=== PATIENT | male | born 1985 | race American Indian/Alaskan Native ===

== ENCOUNTER 2016-10-31 09:13 | Emergency (ER) | payer MEDICARE ==
[2016-10-31 10:09] VITALS: BP 150/87
[2016-10-31] MEDS ORDERED: D5NS 0.2% 1,000 ML IV ONE (10:11)
--- NOTE | 2016-10-31 10:11 | Emergency Department Report ---
Chief Complaint: Sickle Cell Crisis Stated Complaint: SICKLE CELL PAIN Time Seen by Provider: 10/31/16 10:10 - HPI History of Present Illness: This is a 31-year-old male complaining of sickle cell crisis. He said this pain going on for 3 days and complaining the lower back pain, bilateral leg pain and left arm pain. Pain is 8 out of 10. said he takes Dilaudid 4 mg twice daily and he is on folic acid. - ROS Review of Systems: all Systems are negative unless stated in HPI above. - Exam Vital Signs: Vital Signs 10/31/16 10:04 Temperature 98.7 F Pulse Rate 81 Respiratory 16 Rate Blood Pressure 150/87 O2 Sat by Pulse 100 Oximetry Physical Exam: General: Said a 31-year-old male appears to be in distress from pain. CV:S1, S2. Regular rate and rhythm. MSE screening note: Focused history and physical exam performed. Due to findings the following was ordered:see mdm ED Medical Decision Making - Medical Decision Making Medical decision making: Patient seen by provider in triage area. Appropriate protocol activated and patient to main ED to be seen by physician. ED Disposition for MSE Condition: Stable
[2016-10-31 10:39] LABS: Hematocrit 34.6 % (35.5-45.6); Mean Corpuscular HGB Conc 35 % (32-34); Mean Corpuscular Hemoglobin 31 pg (28-32); Mean Corpuscular Volume 89 fl (84-94); Platelet Count 286 K/mm3 (140-440); Red Blood Count 3.89 M/mm3 (3.65-5.03); Red Cell Distribution Width 14.8 % (13.2-15.2); Reticulocyte % 2.75 % (0.78-2.58); White Blood Count 6.7 K/mm3 (4.5-11.0)
[2016-10-31 11:15] LABS: Anisocytosis 1+; Basophils % (Manual) 0 % (0.0-1.8); Blastocytes % (Manual) 0 %
[2016-10-31 11:16] LABS: Diff Status Complete; Sickle Cells Few; Spherocytes Few; Target Cells 2+
--- NOTE | 2016-11-02 19:07 | ED Elopement Review ---
ED Pt Elopement review - Results review Lab results: Laboratory Tests 10/31/16 10:18 WBC 6.7 RBC 3.89 Hgb 12.0 Hct 34.6 L MCV 89 MCH 31 MCHC 35 H RDW 14.8 Plt Count 286 [place] % (Auto) Nursing Home Director Add Manual Diff Complete Total Counted 100 Seg Neutrophils % Nursing Home Director Seg Neuts % (Manual) 38.0 L Band Neutrophils % 0 Lymphocytes % (Manual) 45.0 H Reactive Lymphs % (Man) 0 Monocytes % (Manual) 14.0 H Eosinophils % (Manual) 3.0 Basophils % (Manual) 0 Metamyelocytes % 0 Myelocytes % 0 Promyelocytes % 0 Blast Cells % 0 Nucleated RBC % 3.0 H Seg Neutrophils # Man 2.5 Band Neutrophils # 0.0 Lymphocytes # (Manual) 3.0 Abs React Lymphs (Man) 0.0 Monocytes # (Manual) 0.9 H Eosinophils # (Manual) 0.2 Basophils # (Manual) 0.0 Metamyelocytes # 0.0 Myelocytes # 0.0 Promyelocytes # 0.0 Blast Cells # 0.0 WBC Morphology Not Reportable Hypersegmented Neuts Not Reportable Hyposegmented Neuts Not Reportable Hypogranular Neuts Not Reportable Smudge Cells Not Reportable Toxic Granulation Not Reportable Toxic Vacuolation Not Reportable Dohle Bodies Not Reportable Pelger-Huet Anomaly Not Reportable Jamel Rods Not Reportable Platelet Estimate Appears normal Clumped Platelets Not Reportable Plt Clumps, EDTA Not Reportable Large Platelets Not Reportable Giant Platelets Not Reportable Platelet Satelliting Not Reportable Plt Morphology Comment Not Reportable RBC Morphology Not Reportable Dimorphic RBCs Not Reportable Polychromasia Not Reportable Hypochromasia Not Reportable Poikilocytosis Not Reportable Anisocytosis 1+ Microcytosis Not Reportable Macrocytosis Not Reportable Spherocytes Few Pappenheimer Bodies Not Reportable Sickle Cells Few Target Cells 2+ Tear Drop Cells Not Reportable Ovalocytes Not Reportable Helmet Cells Not Reportable Reyes-Nuremberg Bodies Not Reportable Callahan Rings Not Reportable [place] Cells Not Reportable Bite Cells Not Reportable Crenated Cell Not Reportable Elliptocytes Not Reportable Acanthocytes (Spur) Not Reportable Rouleaux Not Reportable Hemoglobin C Crystals Not Reportable Schistocytes Not Reportable Malaria parasites Not Reportable Percent Retic 2.75 H Darryn Bodies Not Reportable Hem Pathologist Commnt No - Call Back decision Pt Call Back Decision: No action required
== END 2016-10-31 12:00 | disposition left against medical advice (07) ==
LOC: ED 09:13
DX: D57.00 Hb-SS disease with crisis, unspecified (principal); M54.5 Low back pain; M79.604 Pain in right leg; M79.605 Pain in left leg; Z53.21 Procedure and treatment not carried out due to patient leaving prior to being seen by health care provider
CPT/HCPCS: 36415; 85007; 85025; 85045

== ENCOUNTER 2018-11-17 19:47 | Inpatient (IN) | payer MEDICARE ==
[2018-11-17] MEDS ORDERED: PERCOCET 5/325 PO ONE (20:40)
--- NOTE | 2018-11-17 20:40 | Emergency Department Report ---
Blank Doc - Documentation Documentation: 33 y.o. male presents with chest pain that started today. History of sickle c ell. Reports pain is related to sickle cell crisis. Labs, IV, and fluids ordered Given percocet 5/325 mg po once. MSE complete
[2018-11-17] MEDS ORDERED: PERCOCET 5/325 ONE (20:43)
[2018-11-17] MEDS ORDERED: D5NS 0.2% 1,000 ML IV SCH (21:00)
[2018-11-17] MEDS ORDERED: D5/0.45NS 1,000 ML IV SCH (23:45)
--- NOTE | 2018-11-17 23:55 | Emergency Department Report ---
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 Patient presents to the emergency room with diffuse body pain, feeling like he is having a sickle cell crisis, also back pain, a sensation of blacking out, or almost "blacking out" (the patient's history is variable on this point, at one point he indicated that he lost con sciousness, and then subsequently indicated that he did not lose consciousness. He is not able to definitively clarify this point for me). He also complains of central chest pain, and back pain. He denies vomiting, diaphoresis. He denies hematemesis, bright red blood per rectum. History is for sickle cell crisis including cold weather, change of seasons and stress. He denies testicular pain, and dysuria, but does endorse bloody urine. His pain is typically improved with hydromorphone, and occasionally diphenhydramine. -: Gradual, hour(s) Location: chest, back, left, right, upper extremity, lower extremity Radiation: non-radiation Severity scale (0 -10): 3 Quality: burning, stabbing, aching Consistency: constant Improves with: medication, rest Worsens with: movement Associated Symptoms: chest pain, loss of appetite, malaise, syncope, weakness. denies: confusion, cough, diaphoresis, fever/chills, headaches, nausea/vomiting, rash, seizure, shortness of breath - Related Data Home Medications Medication Instructions Recorded Confirmed Last Taken Folic Acid 0.4 mg PO QDAY 07/03/15 07/03/15 Unknown Hydromorphone HCl [Dilaudid] 4 mg PO PRN 07/03/15 07/03/15 Unknown levETIRAcetam [Keppra TAB] 500 mg PO BID 07/03/15 07/03/15 Unknown Previous Rx's Medication Instructions Recorded Last Taken Type oxyCODONE /ACETAMINOPHEN [Percocet 1 tab PO Q6HR PRN #6 tablet 07/09/15 Unknown Rx 5/325 mg] Allergies Allergy/AdvReac Type Severity Reaction Status Date / Time steriod Allergy Unknown Uncoded 10/31/16 10:04 ED Review of Systems ROS: Stated complaint: CHEST/SICKLE CELL PAIN Other details as noted in HPI Constitutional: malaise Eyes: denies: vision change ENT: denies: epistaxis Respiratory: denies: cough Cardiovascular: chest pain Gastrointestinal: denies: hematemesis, melena, hematochezia Genitourinary: hematuria Musculoskeletal: back pain, arthralgia, myalgia Skin: denies: lesions Neurological: weakness Psychiatric: anxiety ED Past Medical Hx - Past Medical History Hx Sickle Cell Disease: Yes Hx Seizures: Yes Additional medical history: HX TRANSFUSIONS - Surgical History Hx Cholecystectomy: Yes Additional Surgical History: spleen removed 2009 - Social History Smoking Status: Never Smoker Substance Use Type: Marijuana - Medications Home Medications: Home Medications Medication Instructions Recorded Confirmed Last Taken Type Folic Acid 0.4 mg PO QDAY 07/03/15 07/03/15 Unknown History Hydromorphone HCl [Dilaudid] 4 mg PO PRN 07/03/15 07/03/15 Unknown History levETIRAcetam [Keppra TAB] 500 mg PO BID 07/03/15 07/03/15 Unknown History oxyCODONE /ACETAMINOPHEN [Percocet 1 tab PO Q6HR PRN #6 tablet 07/09/15 Unknown Rx 5/325 mg] ED Physical Exam - General Limitations: No Limitations General appearance: alert, in distress - Head Head exam: Present: atraumatic, normocephalic - Eye Eye exam: Present: normal appearance, EOMI. Absent: scleral icterus, nystagmus - ENT ENT exam: Present: normal exam, normal orophraynx, mucous membranes moist - Neck Neck exam: Present: normal inspection, full ROM. Absent: tenderness, meningismus - Respiratory Respiratory exam: Present: normal lung sounds bilaterally. Absent: respiratory distress - Cardiovascular Cardiovascular Exam: Present: regular rate, normal rhythm, normal heart sounds. Absent: bradycardia, tachycardia, irregular rhythm, systolic murmur, diastolic murmur, rubs, gallop - GI/Abdominal GI/Abdominal exam: Present: soft. Absent: distended, tenderness, guarding, rebound, rigid, pulsatile mass - Rectal Rectal exam: Present: deferred - Extremities Exam Extremities exam: Present: normal inspection, full ROM, other (2+ pulses noted in the bilateral upper, lower extremities. Compartments soft. No long bony tenderness. The pelvis is stable.). Absent: pedal edema, joint swelling, calf tenderness - Back Exam Back exam: Present: normal inspection, full ROM. Absent: tenderness, CVA tenderness (R), paraspinal tenderness, vertebral tenderness - Neurological Exam Neurological exam: Present: alert, oriented X3, CN II-XII intact, other (Extraocular movements intact. Tongue midline. No facial droop. Facial sensat ion intact to light touch in the V1, V2, V3 distribution bilaterally. 5 and 5 strength in 4 extremities.. Sensation is intact to light touch in 4 extremities.). Absent: motor sensory deficit - Psychiatric Psychiatric exam: Present: anxious - Skin Skin exam: Present: warm, dry, intact, normal color. Absent: rash ED Course Vital Signs 11/17/18 11/17/18 11/17/18 20:06 20:36 20:43 Temperature 98.2 F 98.2 F Pulse Rate 84 84 Respiratory 16 16 18 Rate Blood Pressure 130/79 130/79 O2 Sat by Pulse 98 98 Oximetry 11/17/18 11/18/18 11/18/18 23:48 00:32 00:45 Temperature Pulse Rate Respiratory 18 Rate Blood Pressure 119/59 O2 Sat by Pulse 100 95 Oximetry 11/18/18 11/18/18 11/18/18 01:00 01:15 01:31 Temperature Pulse Rate Respiratory Rate Blood Pressure 131/81 118/74 114/70 O2 Sat by Pulse 96 95 93 Oximetry 11/18/18 11/18/18 11/18/18 01:40 01:45 02:00 Temperature Pulse Rate 80 Respiratory Rate Blood Pressure 110/67 102/59 112/62 O2 Sat by Pulse 96 95 Oximetry 11/18/18 03:15 Temperature Pulse Rate Respiratory Rate Blood Pressure O2 Sat by Pulse 95 Oximetry - Reevaluation(s) Reevaluation #1: 11/18/18 01:20 Rhonda some diagnosis, including not limited to: Sickle cell crisis, pneumonia, pulmonary embolus, pericarditis, myocarditis, acute coronary syndrome, orthost asis, vagal event, structural cardiac disease, rhabdomyolysis, hepatitis, genitourinary infection, kidney stone Assessment and plan: 33-year-old gentleman with a history of sickle cell disease, with a reported history of sickle cell crisis, and multiple complaints on review of systems, including 1: Chest pain/questionable syncope EKG morphologically abnormal, without prior for comparison. The EKG is transmitted to the mixer operator helper hot metal power generation equipment repairer, Dr Mckenzie Hsu, who indicated that the EKG did not meet ST elevation myocardial infarction criteria, that the patient had normal sinus, early repolarization, and did not recommend activation of the Destination Specialist. His elevated troponin with normal renal function is of uncertain significance. Given the patient's young age, numerous complaints, EKG morphology, I agree, and we will monitor the patient, and we will treat supportively, symptomatically. His pain will be treated with hydromorphone, repeat EKG, repeat troponin ordered, CT scan of the chest will be ordered given history of DVT, and history of syncope. The patient will be placed on a cardiac cath lab manager. 2: Back pain pain medication will be given, CT scan will be obtained. 3: "Hematuria" Urinalysis, CT scan of the abdomen and pelvis will be obtained, pain medication will be given. Plan to admit the patient to the medical service once initial diagnostics have resulted. 11/18/18 01:23 Reevaluation #2: 11/18/18 03:21 CT scan of the brain is negative for acute disease. CT scan of the chest is negative for acute disease. CT scan of the abdomen and pelvis is negative for repeat EKG shows improvement in ST abnormalities. Repeat troponin is pending. Hospital physician, Dr. Harman has accepted the patient to the medical service. Given that I'm concerned about julio pericarditis, we will withhold systemic anticoagulation, as we do not want to risk hemorrhagic transformation. Additional pain medication ordered. ED Medical Decision Making - Lab Data Result diagrams: 11/18/18 00:32 11/18/18 00:32 Vital Signs 11/17/18 11/17/18 11/17/18 20:06 20:36 20:43 Temperature 98.2 F 98.2 F Pulse Rate 84 84 Respiratory 16 16 18 Rate Blood Pressure 130/79 130/79 O2 Sat by Pulse 98 98 Oximetry 11/17/18 11/18/18 23:48 00:32 Temperature Pulse Rate Respiratory 18 Rate Blood Pressure O2 Sat by Pulse 100 Oximetry Lab Results 11/18/18 11/18/18 11/18/18 Range/Units 00:32 00:32 00:32 WBC 6.4 (4.5-11.0) K/mm3 RBC 3.55 L (3.65-5.03) M/mm3 Hgb 10.5 L (11.8-15.2) gm/dl Hct 30.5 L (35.5-45.6) % MCV 86 (84-94) fl MCH 30 (28-32) pg MCHC 34 (32-34) % RDW 17.9 H (13.2-15.2) % Plt Count 305 (140-440) K/mm3 [place] % (Auto) Entry Manager Seg Neutrophils % Entry Manager Percent Retic 2.89 H (0.78-2.58) % PT 13.3 (12.2-14.9) Sec. INR 0.97 (0.87-1.13) Sodium 138 (137-145) mmol/L Potassium 3.9 (3.6-5.0) mmol/L Chloride 101.5 (98-107) mmol/L Carbon Dioxide 26 (22-30) mmol/L Anion Gap 14 mmol/L BUN 8 L (9-20) mg/dL Creatinine 0.5 L (0.8-1.5) mg/dL Estimated GFR > 60 ml/min BUN/Creatinine Ratio 16 % Glucose 110 H (75-100) mg/dL Calcium 8.9 (8.4-10.2) mg/dL Total Creatine Kinase (55-170) units/L Troponin T (0.00-0.029) ng/mL 11/18/18 Range/Units 00:32 WBC (4.5-11.0) K/mm3 RBC (3.65-5.03) M/mm3 Hgb (11.8-15.2) gm/dl Hct (35.5-45.6) % MCV (84-94) fl MCH (28-32) pg MCHC (32-34) % RDW (13.2-15.2) % Plt Count (140-440) K/mm3 [place] % (Auto) Seg Neutrophils % Percent Retic (0.78-2.58) % PT (12.2-14.9) Sec. INR (0.87-1.13) Sodium (137-145) mmol/L Potassium (3.6-5.0) mmol/L Chloride (98-107) mmol/L Carbon Dioxide (22-30) mmol/L Anion Gap mmol/L BUN (9-20) mg/dL Creatinine (0.8-1.5) mg/dL Estimated GFR ml/min BUN/Creatinine Ratio % Glucose (75-100) mg/dL Calcium (8.4-10.2) mg/dL Total Creatine Kinase 159 (55-170) units/L Troponin T 0.327 H* (0.00-0.029) ng/mL - EKG Data -: EKG Interpreted by Me EKG shows normal: sinus rhythm Rate: normal - EKG Data When compared to previous EKG there are: previous EKG unavailable - Radiology Data Radiology results: report reviewed, image reviewed Noncontrast CT scan of the brain is negative for acute disease. X-ray the chest is negative for acute disease. Chronic findings noted. Critical care attestation.: If time is entered above; I have spent that time in minutes in the direct care of this critically ill patient, excluding procedure time. ED Disposition Clinical Impression: Sickle cell anemia with pain, Elevated troponin I level, Abnormal EKG, Near syncope Disposition: OP ADMIT IP TO THIS HOSP Is pt being admited?: Yes Does the pt Need Aspirin: Yes Condition: Stable Referrals: FLAQUITO RUIZ MD [Primary Care Provider] - 3-5 Days
--- NOTE | 2018-11-18 00:22 | XRay Report ---
FINAL REPORT EXAM: XR CHEST ROUTINE 2V HISTORY: hb ss chest pain. TECHNIQUE: PA and lateral views of the chest were obtained. PRIORS: None. FINDINGS: No focal consolidation, cardiomegaly or pulmonary venous hypertension. No pleural effusion. There is mixed sclerosis and lucencies within the humeral heads bilaterally consistent with avascular necrosis . IMPRESSION: No acute cardiopulmonary disease. Bilateral humeral head avascular necrosis.
--- NOTE | 2018-11-18 00:38 | Cat Scan Report ---
FINAL REPORT EXAM: CT HEAD/BRAIN WO CON HISTORY: Syncope. TECHNIQUE: CT evaluation was performed of the head without the use of intravenous contrast administr ation. PRIORS: CT head dated 07/03/2015. FINDINGS: Normal density, size and configuration of the brain parenchyma and CSF containing spaces. No evidence of acute hemorrhage. no mass effect, edema or shift of midline structures. Visualized paranasal sinu ses are clear. No pathologic fluid collection. Calvarium is normal. IMPRESSION: No CT evidence of acute intracranial process.
[2018-11-18 00:53] LABS: Hematocrit 30.5 % (35.5-45.6); Hemoglobin 10.5 gm/dl (11.8-15.2); Mean Corpuscular HGB Conc 34 % (32-34); Mean Corpuscular Volume 86 fl (84-94); Platelet Count 305 K/mm3 (140-440); Red Blood Count 3.55 M/mm3 (3.65-5.03); Red Cell Distribution Width 17.9 % (13.2-15.2)
[2018-11-18] MEDS ORDERED: DILAUDID IV ONE ×3 (00:54→03:20)
[2018-11-18] MEDS ORDERED: DILAUDID ONE ×2 (00:57→02:00)
[2018-11-18 01:08] LABS: BUN/Creatinine Ratio 16; Blood Urea Nitrogen 8 mg/dL (9-20); Calcium 8.9 mg/dL (8.4-10.2); Hemolysis Index 17
[2018-11-18] MEDS ORDERED: BENADRYL PO ONE ×2 (01:10)
[2018-11-18 01:17] LABS: INR 0.97 (0.87-1.13)
[2018-11-18] MEDS ORDERED: NITROSTAT SL ONE (01:24)
[2018-11-18 01:56] LABS: Bilirubin,Urine NEG (Negative); Blood,Urine NEG (Negative); Color,Urine Yellow (Yellow); Protein,Urine <15 mg/dL mg/dL (Negative); Urobilinogen,Urine < 2.0 mg/dL (<2.0)
[2018-11-18 02:06] LABS: Anisocytosis 1+; Band Neutrophils # (Manual) 0.3 K/mm3; Basophils % (Manual) 0 % (0.0-1.8); Hypochromasia 2+; Myelocytes # (Manual) 0.1 K/mm3; Ovalocytes 1+; Stomatocytes Few; Target Cells 2+; Total Cells Counted 100
[2018-11-18 02:07] LABS: Tear Drop Cells Rare
--- NOTE | 2018-11-18 03:14 | Cat Scan Report ---
FINAL REPORT PROCEDURE: CT ANGIO CHEST TECHNIQUE: Computerized axial tomographic angiography of the chest and pulmonary arteries was perfor med after the IV injection of iodinated nonionic contrast. The image data was postprocessed using max imum intensity projection (MIP) and 2-dimensional multiplanar reformatted (MPR) techniques. The exami nation is specifically tailored to the evaluation of the pulmonary arteries per clinical request. HISTORY: Short of breath 786.09, chest pain 786.50, cp near syncope hx dvt COMPARISON: No prior studies are available for comparison. FINDINGS: Heart and pericardium: Normal. Thoracic aorta: Normal. Pulmonary vasculature: Normal. No pulmonary emboli. Lymph nodes: No enlarged thoracic lymph nodes. Lungs: Normal. Pleural space: No effusion, thickening, or pneumothorax. Musculoskeletal structures: No significant abnormality. Upper abdominal structures: No significant abnormality. IMPRESSION: There is no pulmonary embolism..
[2018-11-18 03:15] LABS: Chol/HDL Ratio 2.83 %
--- NOTE | 2018-11-18 03:19 | Cat Scan Report ---
FINAL REPORT PROCEDURE: CT ABDOMEN PELVIS W CON TECHNIQUE: Computerized axial tomography of the abdomen and pelvis was performed after the IV inject ion of iodinated nonionic contrast. HISTORY: back pain hematuria syncope COMPARISON: No prior studies are available for comparison. FINDINGS: Visualized lower thorax: No significant abnormality. Liver: Normal size and attenuation. Spleen: Normal size and attenuation. Gallbladder and biliary system: There has been a cholecystectomy. The bile ducts are normal in calibe r.. Pancreas: Normal. Adrenals: Normal. Kidneys: There is a cyst in the upper pole of the right kidney measuring 2.4 centimeters. There are n o kidney stones. There is no hydronephrosis.. GI tract: There is no bowel obstruction, colitis or enteritis.. Lymph nodes and mesentery: Normal. Vasculature: Normal. Bladder: Normal. Reproductive organs: Normal. Peritoneum: There is no ascites, free air, abscess or adenopathy.. Musculoskeletal structures: No significant abnormality. Other: None. IMPRESSION: There has been a cholecystectomy. The bile ducts are normal in caliber.. There is a cyst in the upper pole of the right kidney measuring 2.4 centimeters. There are no kidney stones. There is no hydronephrosis.. There is no bowel obstruction, colitis or enteritis.. There is no ascites, free air, abscess or adenopathy..
[2018-11-18] MEDS ORDERED: TORADOL IV ONE (03:22)
[2018-11-18] MEDS ORDERED: BABY ASPIRIN PO ONE (03:23)
[2018-11-18] MEDS ORDERED: ZOFRAN IV PRN (03:57)
[2018-11-18] MEDS ORDERED: TYLENOL PO PRN (03:58)
[2018-11-18 04:35] LABS: Creatine Kinase MB 17.9 ng/mL (0.0-4.0)
[2018-11-18 04:36] LABS: Alanine Aminotransferase 35 units/L (7-56)
[2018-11-18 05:30] LABS: Bilirubin,Direct < 0.2 mg/dL (0-0.2)
[2018-11-18 06:34] LABS: Creatine Kinase MB 17.2 ng/mL (0.0-4.0)
[2018-11-18] MEDS: DILAUDID IV PRN ×5 (06:38→21:13)
[2018-11-18] MEDS: NACL 0.9% 1000 ML 1,000 ML IV SCH (06:44)
--- NOTE | 2018-11-18 07:01 | History and Physical Report ---
CHIEF COMPLAINT: Generalized body pain. Other complaint includes chest pain. HISTORY OF PRESENTING ILLNESS: The patient is a 33-year-old male with history of sickle cell anemia, presenting with pain all over and also chest pain. The patient said that the chest pain became severe and he passed out twice. Denied history of fever. Denied history of chills. Also, denied history of nausea or vomiting and presented for evaluation to the Emergency Room. PAST MEDICAL HISTORY: Pertinent for seizure disorder, sickle cell anemia, which has been treated with multiple transfusions. PAST SURGICAL HISTORY: Pertinent for cholecystectomy and splenectomy. FAMILY HISTORY: Noncontributory.. SOCIAL HISTORY: The patient uses marijuana. He does not smoke cigarettes and does not drink alcohol. MEDICATIONS: The patient is on folic acid 0.4 mg by mouth daily, Dilaudid 4 mg by mouth as needed, frequency unknown; Keppra 500 mg by mouth twice daily, and Percocet 5/325 one by mouth every 6 hours as needed for pain. ALLERGIES: THE PATIENT IS ALLERGIC TO STEROIDS. REVIEW OF SYSTEMS: CONSTITUTIONAL: There is no fever, no chills, no diaphoresis. HEENT: There is no headache or sore throat. CARDIOVASCULAR SYSTEM: Chest pain is present. No orthopnea. RESPIRATORY SYSTEM: There is no shortness of breath and no cough. GASTROINTESTINAL SYSTEM: There is no nausea, no vomiting, no abdominal pain, diarrhea or constipation. NEUROLOGICAL SYSTEM: Syncopal episode attack noted. MUSCULOSKELETAL SYSTEM: Generalized body pain involving the limbs noted. There is no joint swelling. DERMATOLOGICAL SYSTEM: There is no skin rash or itching. GENITOURINARY SYSTEM: There is no dysuria, hematuria or flank pain. Rest of system review is normal. PHYSICAL EXAMINATION: GENERAL: At the time of exam, the patient was found to be alert and oriented x3 and in moderate distress due to body pain. VITAL SIGNS: At the initial time of presentation show temperature of 98.2 degrees Fahrenheit, pulse of 84, respiration 16, blood pressure 130/79, and O2 sat of 98% on room air. HEENT: Showed pupils to be equal, round, and reactive to light and accommodating. Extraocular movements are intact. NECK: Supple with no JVD or carotid bruit. CARDIOVASCULAR: Showed normal first and second heart sounds with no gallop or murmur. RESPIRATORY SYSTEM: Showed good air entry on both sides of the lungs with no abnormal breath sounds. GASTROINTESTINAL SYSTEM: Showed abdomen to be full, soft, nontender with no organomegaly or rigidity. NEUROLOGICAL: Showed no focal deficit. MUSCULOSKELETAL SYSTEM: Showed no joint swelling or tenderness. DERMATOLOGICAL SYSTEM: Showing no skin rash. GENITOURINARY SYSTEM: Showing no costovertebral angle tenderness. PERTINENT LABORATORY DATA AND IMAGING STUDIES: The patient has chest x-ray done and chest x-ray showed no acute cardiopulmonary disease. There is bilateral humeral head avascular necrosis noted. The patient also has a CT of the head done and CT of the head showed no acute intracranial process. The patient had a CT of the abdomen and pelvis done and CT of the abdomen and pelvis showed that there has been cholecystectomy done in the past ____ found to be normal but there is a cyst in the upper pole of the right kidney measuring 2.4 cm. There are no kidney stones. There is no hydronephrosis. Also there was no bowel obstruction, colitis or enteritis found. There was no ascites, free air, abscess or adenopathy found. The patient also had a CT angiogram of the chest and angiogram of the chest showed no pulmonary embolism. LABORATORY DATA: The patient's lab results: CBC showed normal white count with slightly low hemoglobin of 10.5 and slightly low hematocrit of 30.5. The patient's CBC differential showed elevated monocyte count of 11 and elevated eosinophilic count of 12. The patient's percent retic count is high with a value of 2.89, and the patient's coagulation studies showed a high D-dimer of 776 that led to ordering of CT angiogram. The patient's chemistry was unremarkable except for elevated AST level of 43 with normal ALT and the patient's cardiac enzymes showed elevated total CPK of 216 with high CK-MB of 17.9 and high CK-MB percentage index of 8.2 with elevated troponin level of 0.327. The patient's urinalysis was unremarkable. DIAGNOSES: 1. Sickle cell pain crisis. 2. Syncope. 3. Elevated troponin level. PLAN: 1. The patient will be admitted to telemetry. 2. The patient will continue Cardiology consult with Dr. Hsu, already requested by the Emergency Room physician. 3. The patient will have cardiac enzymes involving troponin, total CK, and CK-MB checked every 6 hours x 2 more levels. 4. The patient will be on IV Dilaudid 1 mg every 3 hours as needed for pain and IV Zofran 4 mg every 8 hours for nausea and vomiting. 5. The patient will be on IV normal saline running at 125 mL an hour. 6. The patient will have 2D echo done because of syncopal attack and also have bilateral carotid Doppler done because of the syncopal attack. 7. The patient will be on Tylenol 650 mg by mouth every 4 hours as needed for fever and headache. JOB# [id number] OCN/NTS MTDD
[2018-11-18] MEDS: KEPPRA PO SCH ×2 (09:42→21:14)
[2018-11-18] MEDS: BENADRYL PO PRN (10:00)
--- NOTE | 2018-11-18 11:27 | Vascular Lab Report ---
FINAL REPORT EXAM: VL CAROTID DUPLEX BILAT HISTORY: SYNCOPE TECHNIQUE: Grayscale and color and spectral Doppler ultrasound imaging of the carotid arteries was p erformed. PRIORS: None. FINDINGS: No areas of complete occlusion. Normal waveforms are seen throughout. No aneurysm. No calcified ather osclerotic plaque was seen. Normal flow is seen in the external carotid arteries. Antegrade flow is s een in the vertebral arteries. Note is made of a nonocclusive thrombus within the central portion of the right internal jugular vein. Peak systolic velocities in cm/s below: Right: CCA: 104 proximally, 93 distally ICA: 105 proximally, 85 mid, 84 distally ECA: 92 Left: CCA: 141 proximally, 125 distally ICA: 90 proximally, 91 mid, 76 distally ECA: 62 The right ICA:CCA ratio is 0.82. The left ICA:CCA ratio is 0.64. IMPRESSION: 1. No evidence of internal carotid artery stenosis. 2. Positive for acute DVT within the right internal jugular vein. Findings were discussed with Dr. Burnett at 8:23 a.m. [facility] on 11/18/2018.
--- NOTE | 2018-11-18 11:28 | Progress Note ---
Assessment and Plan Assessment and plan: --Right IJ acute DVT; Anticoagulation with Lovenox, supportive care. Vascular consult --Sickle cell disease with painful crisis; Continue pain management, IV hydration, consider hematology consult if no i mprovement --Elevated cardiac enzymes; possible non-ST elevation MO Continue current management, cardiology consultation Echo for left ventricular function ejection fraction --History of syncope; fall precautions Syncope workup in progress, supportive care --Elevated D dimers; negative PE on CTA chest Right IJ acute DVT, check lower extremity venous Doppler. Closely monitor the patient and adjust the management as needed Plan of care reviewed with the patient and his nurse History Interval history: Patient seen and examined medical records reviewed Admitted with sickle cell painful crisis and chest pain Positive cardiac enzymes, pending cardiology evaluation Patient also had carotid Doppler, incidental finding of right IJ DVT Patient complains of pain As for more pain medications Vital signs noted Hospitalist Physical - Constitutional Vitals: Temp Pulse Resp BP Pulse Ox 98.6 F 60 18 104/64 99 11/18/18 08:36 11/18/18 08:36 11/18/18 08:36 11/18/18 08:36 11/18/18 08:36 General appearance: Present: no acute distress, well-nourished - EENT Eyes: Present: PERRL, EOM intact - Neck Neck: Present: supple, normal ROM - Respiratory Respiratory effort: normal Respiratory: bilateral: diminished, negative: rales, rhonchi, wheezing - Cardiovascular Rhythm: regular Heart Sounds: Present: S1 & S2 - Extremities Extremities: no ischemia, No edema - Abdominal General gastrointestinal: soft, non-tender, non-distended, normal bowel sounds - Integumentary Integumentary: Present: clear, warm - Psychiatric Psychiatric: appropriate mood/affect, cooperative - Neurologic Neurologic: CNII-XII intact, moves all extremities Results - Labs CBC & Chem 7: 11/18/18 00:32 11/18/18 00:32 Labs: Laboratory Last Values WBC 6.4 K/mm3 (4.5-11.0) 11/18/18 00:32 RBC 3.55 M/mm3 (3.65-5.03) L 11/18/18 00:32 Hgb 10.5 gm/dl (11.8-15.2) L 11/18/18 00:32 Hct 30.5 % (35.5-45.6) L 11/18/18 00:32 MCV 86 fl (84-94) 11/18/18 00:32 MCH 30 pg (28-32) 11/18/18 00:32 MCHC 34 % (32-34) 11/18/18 00:32 RDW 17.9 % (13.2-15.2) H 11/18/18 00:32 Plt Count 305 K/mm3 (140-440) 11/18/18 00:32 [place] % (Auto) [employer] Mover 11/18/18 00:32 Add Manual Diff Complete 11/18/18 00:32 Total Counted 100 02 00:32 Seg Neutrophils % [employer] 11/18/18 00:32 Seg Neuts % (Manual) 16.0 % (40.0-70.0) L 11/18/18 00:32 Band Neutrophils % 4.0 % 11/18/18 00:32 Lymphocytes % (Manual) 56.0 % (13.4-35.0) H 11/18/18 00:32 Reactive Lymphs % (Man) 0 % 11/18/18 00:32 Monocytes % (Manual) 11.0 % (0.0-7.3) H 11/18/18 00:32 Eosinophils % (Manual) 12.0 % (0.0-4.3) H 11/18/18 00:32 Basophils % (Manual) 0 % (0.0-1.8) 11/18/18 00:32 Metamyelocytes % 0 % 11/18/18 00:32 Myelocytes % 1.0 % 11/18/18 00:32 Promyelocytes % 0 % 11/18/18 00:32 Blast Cells % 0 % 11/18/18 00:32 Nucleated RBC % Not Reportable 11/18/18 00:32 Seg Neutrophils # Man 1.0 K/mm3 (1.8-7.7) L 11/18/18 00:32 Band Neutrophils # 0.3 K/mm3 11/18/18 00:32 Lymphocytes # (Manual) 3.6 K/mm3 (1.2-5.4) 02 00:32 Abs React Lymphs (Man) 0.0 K/mm3 11/18/18 00:32 Monocytes # (Manual) 0.7 K/mm3 (0.0-0.8) 11/18/18 00:32 Eosinophils # (Manual) 0.8 K/mm3 (0.0-0.4) H 11/18/18 00:32 Basophils # (Manual) 0.0 K/mm3 (0.0-0.1) 11/18/18 00:32 Metamyelocytes # 0.0 K/mm3 11/18/18 00:32 Myelocytes # 0.1 K/mm3 11/18/18 00:32 Promyelocytes # 0.0 K/mm3 11/18/18 00:32 Blast Cells # 0.0 K/mm3 11/18/18 00:32 WBC Morphology Not Reportable 11/18/18 00:32 Hypersegmented Neuts Not Reportable 11/18/18 00:32 Hyposegmented Neuts Not Reportable 11/18/18 00:32 Hypogranular Neuts Not Reportable 11/18/18 00:32 Smudge Cells Not Reportable 11/18/18 00:32 Toxic Granulation Not Reportable 11/18/18 00:32 Toxic Vacuolation Not Reportable 11/18/18 00:32 Dohle Bodies Not Reportable 11/18/18 00:32 Pelger-Huet Anomaly Not Reportable 11/18/18 00:32 Jamel Rods Not Reportable 11/18/18 00:32 Platelet Estimate Appears normal 11/18/18 00:32 Clumped Platelets Not Reportable 11/18/18 00:32 Plt Clumps, EDTA Not Reportable 11/18/18 00:32 Large Platelets Not Reportable 11/18/18 00:32 Giant Platelets Not Reportable 11/18/18 00:32 Platelet Satelliting Not Reportable 11/18/18 00:32 Plt Morphology Comment Not Reportable 11/18/18 00:32 RBC Morphology Not Reportable 11/18/18 00:32 Dimorphic RBCs Not Reportable 11/18/18 00:32 Polychromasia Not Reportable 11/18/18 00:32 Hypochromasia 2+ 11/18/18 00:32 Poikilocytosis Not Reportable 11/18/18 00:32 Anisocytosis 1+ 11/18/18 00:32 Microcytosis Few 11/18/18 00:32 Macrocytosis Not Reportable 11/18/18 00:32 Spherocytes Not Reportable 11/18/18 00:32 Pappenheimer Bodies Not Reportable 11/18/18 00:32 Sickle Cells Not Reportable 11/18/18 00:32 Target Cells 2+ 11/18/18 00:32 Tear Drop Cells Rare 11/18/18 00:32 Ovalocytes 1+ 11/18/18 00:32 Stomatocytes Few 11/18/18 00:32 Helmet Cells Not Reportable 11/18/18 00:[address] [place] Bodies Not Reportable 11/18/18 00:32 [place] Rings Not Reportable 11/18/18 00:32 [place] Cells Not Reportable 11/18/18 00:32 Bite Cells Not Reportable 11/18/18 00:32 Crenated Cell Not Reportable 11/18/18 00:32 Elliptocytes Not Reportable 11/18/18 00:32 Acanthocytes (Spur) Not Reportable 11/18/18 00:32 Rouleaux Not Reportable 11/18/18 00:32 Hemoglobin C Crystals Not Reportable 11/18/18 00:32 Schistocytes Not Reportable 11/18/18 00:32 Malaria parasites Not Reportable 11/18/18 00:32 Percent Retic 2.89 % (0.78-2.58) H 11/18/18 00:32 Darryn Bodies Not Reportable 11/18/18 00:32 Hem Pathologist Commnt No 11/18/18 00:32 PT 13.3 Sec. (12.2-14.9) 11/18/18 00:32 INR 0.97 (0.87-1.13) 11/18/18 00:32 D-Dimer 776.68 ng/mlDDU (0-234) H 11/18/18 01:20 Sodium 138 mmol/L (137-145) 11/18/18 00:32 Potassium 3.9 mmol/L (3.6-5.0) 11/18/18 00:32 Chloride 101.5 mmol/L (98-107) 11/18/18 00:32 Carbon Dioxide 26 mmol/L (22-30) 11/18/18 00:32 Anion Gap 14 mmol/L 11/18/18 00:32 BUN 8 mg/dL (9-20) L 11/18/18 00:32 Creatinine 0.5 mg/dL (0.8-1.5) L 11/18/18 00:32 Estimated GFR > 60 ml/min 11/18/18 00:32 BUN/Creatinine Ratio 16 % 11/18/18 00:32 Glucose 110 mg/dL (75-100) H 11/18/18 00:32 Calcium 8.9 mg/dL (8.4-10.2) 11/18/18 00:32 Total Bilirubin 0.60 mg/dL (0.1-1.2) 11/18/18 04:21 Direct Bilirubin < 0.2 mg/dL (0-0.2) 11/18/18 04:21 Indirect Bilirubin 0.4 mg/dL 11/18/18 04:21 AST 43 units/L (5-40) H 11/18/18 04:21 ALT 35 units/L (7-56) 11/18/18 04:21 Alkaline Phosphatase 70 units/L (35-129) 11/18/18 04:21 Total Creatine Kinase 208 units/L (55-170) H 11/18/18 05:45 CK-MB (CK-2) 17.2 ng/mL (0.0-4.0) H 11/18/18 05:45 CK-MB (CK-2) Rel Index 8.2 (0-4) H 11/18/18 05:45 Troponin T 0.543 ng/mL (0.00-0.029) H* 11/18/18 05:45 Total Protein 6.7 g/dL (6.3-8.2) 11/18/18 04:21 Albumin 4.0 g/dL (3.9-5) 11/18/18 04:21 Albumin/Globulin Ratio 1.5 % 11/18/18 04:21 Triglycerides 183 mg/dL (2-149) H 11/18/18 00:32 Cholesterol 122 mg/dL (50-199) 11/18/18 00:32 LDL Cholesterol Direct 78 mg/dL (50-130) 11/18/18 00:32 HDL Cholesterol 43 mg/dL (40-59) 11/18/18 00:32 Cholesterol/HDL Ratio 2.83 % 11/18/18 00:32 Urine Color Yellow (Yellow) 11/18/18 01:31 Urine Turbidity Clear (Clear) 11/18/18 01:31 Urine pH 5.0 (5.0-7.0) 11/18/18 01:31 Ur Specific [place] 1.004 (1.003-1.030) 11/18/18 01:31 Urine Protein <15 mg/dl mg/dL (Negative) 11/18/18 01:31 Urine Glucose (UA) Neg mg/dL (Negative) 11/18/18 01:31 Urine Ketones Neg mg/dL (Negative) 11/18/18 01:31 Urine Blood Neg (Negative) 11/18/18 01:31 Urine Nitrite Neg (Negative) 11/18/18 01:31 Urine Bilirubin Neg (Negative) 11/18/18 01:31 Urine Urobilinogen < 2.0 mg/dL (<2.0) 11/18/18 01:31 Ur Leukocyte Esterase Neg (Negative) 11/18/18 01:31 Urine WBC (Auto) 4.0 /HPF (0.0-6.0) 11/18/18 01:31 Urine RBC (Auto) 1.0 /HPF (0.0-6.0) 11/18/18 01:31 U Epithel Cells (Auto) < 1.0 /HPF (0-13.0) 11/18/18 01:31
--- NOTE | 2018-11-18 15:38 | Consultation ---
History of Present Illness - Reason for Consult Consult date: 11/18/18 DVT RIJ Requesting physician: MICHEAL SANTANA - History of Present Illness He is 33 year Black male with history of sickle cell disease and seizures admitted through the Emergency Department for chest pain and syncopal episode. Yesterday, he was walking downstairs at his home to look out window because heard a car honking horn he started seeing blackness so he stopped walking. It resolved and then he started walking again and he passed out. He does not think it was a seizure states "I don't remember when I have a seizure and I remember this." His seizures occur at least twice monthly and not controlled. Per his history, his seizures are brought on by his sickle cell pain which he takes Di laudid routinely. He relates a history of IV insertions to his neck in the past and he recently had a right upper arm PICC line removed last month in [place] due to infection. A carotid duplex was obtained and shows right IJ acute DVT. A vascular surgery consult was requested. Past History Past Medical History: seizures, other (sickle cell disease, blood clot left arm) Past Surgical History: cholecystectomy, Other (splenectomy) Social history: single, lives with family, other (smokes marijuana). denies: alcohol abuse, prescription drug abuse, IV drug use Family history: no significant family history Medications and Allergies Allergies Allergy/AdvReac Type Severity Reaction Status Date / Time steriod Allergy Unknown Uncoded 10/31/16 10:04 Home Medications Medication Instructions Recorded Confirmed Last Taken Type Hydromorphone HCl [Dilaudid] 4 mg PO Q6HR PRN 07/03/15 11/18/18 Unknown History levETIRAcetam [Keppra TAB] 1,000 mg PO BID 07/03/15 11/18/18 11/17/18 History Active Meds: Active Medications Acetaminophen (Tylenol) 650 mg PO Q4H PRN PRN Reason: Fever >101 Diphenhydramine HCl (Benadryl) 25 mg PO Q8H PRN PRN Reason: Itching Last Admin: 11/18/18 10:00 Dose: 25 mg Documented by: Enoxaparin Sodium (Lovenox) 80 mg 1 mg/kg (80 mg) SUB-Q Q12HR JAMEE Hydromorphone HCl (Dilaudid) 1 mg IV Q3H PRN PRN Reason: Pain, Moderate (4-6) Last Admin: 11/18/18 09:43 Dose: 1 mg Documented by: Sodium Chloride (Nacl 0.9% 1000 Ml) 1,000 mls @ 125 mls/hr IV DIRECT JAMEE Last Admin: 11/18/18 06:44 Dose: 125 mls/hr Documented by: Levetiracetam (Keppra) 1,000 mg PO BID [facility] Last Admin: 11/18/18 09:42 Dose: 1,000 mg Documented by: Ondansetron HCl (Zofran) 4 mg IV Q8H PRN PRN Reason: Nausea And Vomiting Review of Systems Constitutional: no weight loss, no weight gain, no fever, no chills Cardiovascular: chest pain, shortness of breath Respiratory: shortness of breath Musculoskeletal: other (sickle cell pain joints back chest) Integumentary: other ("hard vein" right arm), no rash Psychiatric: no anxiety Exam - Constitutional Vitals: Temp Pulse Resp BP Pulse Ox 97.9 F 75 18 102/63 98 11/18/18 12:34 11/18/18 12:34 11/18/18 12:34 11/18/18 12:34 11/18/18 12:34 General appearance: Present: well-nourished - EENT Eyes: Present: EOM intact. Absent: conjunctival injection ENT: hearing intact, dentition normal - Neck Neck: Present: supple, normal ROM - Respiratory Respiratory effort: normal, other (nonlabored at rest) - Cardiovascular Rhythm: regular - Extremities Extremities: no ischemia, pulses intact, Full ROM, abnormal (palpable cord right axilla) - Integumentary Integumentary: Present: warm, dry, normal turgor - Musculoskeletal Musculoskeletal: strength equal bilaterally - Psychiatric Psychiatric: intact judgment & insight, memory intact, cooperative - Neurologic Neurologic: CNII-XII intact, no focal deficits, moves all extremities Results - Labs CBC & Chem 7: 11/18/18 00:32 11/18/18 00:32 Labs: Abnormal lab results 11/18/18 11/18/18 11/18/18 Range/Units 00:32 00:32 00:32 RBC 3.55 L (3.65-5.03) M/mm3 Hgb 10.5 L (11.8-15.2) gm/dl Hct 30.5 L (35.5-45.6) % RDW 17.9 H (13.2-15.2) % Seg Neuts % (Manual) 16.0 L (40.0-70.0) % Lymphocytes % (Manual) 56.0 H (13.4-35.0) % Monocytes % (Manual) 11.0 H (0.0-7.3) % Eosinophils % (Manual) 12.0 H (0.0-4.3) % Seg Neutrophils # Man 1.0 L (1.8-7.7) K/mm3 Eosinophils # (Manual) 0.8 H (0.0-0.4) K/mm3 Percent Retic 2.89 H (0.78-2.58) % D-Dimer (0-234) ng/mlDDU BUN 8 L (9-20) mg/dL Creatinine 0.5 L (0.8-1.5) mg/dL Glucose 110 H (75-100) mg/dL AST (5-40) units/L Total Creatine Kinase (55-170) units/L CK-MB (CK-2) (0.0-4.0) ng/mL CK-MB (CK-2) Rel Index (0-4) Troponin T 0.327 H* (0.00-0.029) ng/mL Triglycerides 183 H (2-149) mg/dL 11/18/18 11/18/18 11/18/18 Range/Units 01:20 04:01 04:21 RBC (3.65-5.03) M/mm3 Hgb (11.8-15.2) gm/dl Hct (35.5-45.6) % RDW (13.2-15.2) % Seg Neuts % (Manual) (40.0-70.0) % Lymphocytes % (Manual) (13.4-35.0) % Monocytes % (Manual) (0.0-7.3) % Eosinophils % (Manual) (0.0-4.3) % Seg Neutrophils # Man (1.8-7.7) K/mm3 Eosinophils # (Manual) (0.0-0.4) K/mm3 Percent Retic (0.78-2.58) % D-Dimer 776.68 H (0-234) ng/mlDDU BUN (9-20) mg/dL Creatinine (0.8-1.5) mg/dL Glucose (75-100) mg/dL AST 43 H (5-40) units/L Total Creatine Kinase (55-170) units/L CK-MB (CK-2) (0.0-4.0) ng/mL CK-MB (CK-2) Rel Index (0-4) Troponin T 0.613 H* D (0.00-0.029) ng/mL Triglycerides (2-149) mg/dL 11/18/18 11/18/18 Range/Units 04:21 05:45 RBC (3.65-5.03) M/mm3 Hgb (11.8-15.2) gm/dl Hct (35.5-45.6) % RDW (13.2-15.2) % Seg Neuts % (Manual) (40.0-70.0) % Lymphocytes % (Manual) (13.4-35.0) % Monocytes % (Manual) (0.0-7.3) % Eosinophils % (Manual) (0.0-4.3) % Seg Neutrophils # Man (1.8-7.7) K/mm3 Eosinophils # (Manual) (0.0-0.4) K/mm3 Percent Retic (0.78-2.58) % D-Dimer (0-234) ng/mlDDU BUN (9-20) mg/dL Creatinine (0.8-1.5) mg/dL Glucose (75-100) mg/dL AST (5-40) units/L Total Creatine Kinase 216 H 208 H (55-170) units/L CK-MB (CK-2) 17.9 H 17.2 H (0.0-4.0) ng/mL CK-MB (CK-2) Rel Index 8.2 H 8.2 H (0-4) Troponin T 0.543 H* (0.00-0.029) ng/mL Triglycerides (2-149) mg/dL - Imaging and Cardiology EKG: image reviewed (CTA chest , carotid duplex reviewed) Assessment and Plan Right IJ DVT acute He has acute right IJ thrombus. Agree with antiocoagulation as long as meenu ated. Currently on Lovenox. Convert to oral antiocoagulation when possible. Also palpable cord present right axillary region history of right arm PICC line recently removed. Needs upper extremity duplex for possible upper extremity DVT (for documentation purposes only) as already treating for RIJ thrombus. Will need anticoagulation for minimum 3 months. Chest pain with elevated Troponins His CTA chest negative for PE. Chest pain management per cardiology
--- NOTE | 2018-11-18 15:45 | Consultation ---
History of Present Illness Consult date: 11/18/18 Requesting physician: ELKIN WAYNE Consult reason: elevated troponin, other (abn ekg) History of present illness: The pt is a 33-year-old male with a past medical history of seizures, sickle cell disease, history of left upper extremity DVT, reports not currently on systemic anticoagulation, also reports history of splenectomy and cholecystectomy, marijuana use. He is previously unknown to our practice. He presented for evaluation following seizure and also for evaluation of chest pain. He states that he suffered a seizure and his mother called EMS. When he regained consciousness, he noted chest pain. He describes his chest pain as a midsternal squeezing pain which is aggravated by deep inspiration and by pa lpation of the sternum. He denies any SOB, palpitations, n/v, diaphoresis, dizziness. He denies any prior cardiac issues, including CAD, AMI, HF or arrhythmia. He denies any prior cardiac w/u. Past History Past Medical History: DVT, seizures, other (sickle cell) Past Surgical History: cholecystectomy, Other (splenectomy) Social history: smoking (marijuana). denies: alcohol abuse Medications and Allergies Allergies Allergy/AdvReac Type Severity Reaction Status Date / Time steriod Allergy Unknown Uncoded 10/31/16 10:04 Home Medications Medication Instructions Recorded Confirmed Last Taken Type Hydromorphone HCl [Dilaudid] 4 mg PO Q6HR PRN 07/03/15 11/18/18 Unknown History levETIRAcetam [Keppra TAB] 1,000 mg PO BID 07/03/15 11/18/18 11/17/18 History Active Meds: Active Medications Acetaminophen (Tylenol) 650 mg PO Q4H PRN PRN Reason: Fever >101 Diphenhydramine HCl (Benadryl) 25 mg PO Q8H PRN PRN Reason: Itching Last Admin: 11/18/18 10:00 Dose: 25 mg Documented by: Enoxaparin Sodium (Lovenox) 80 mg 1 mg/kg (80 mg) SUB-Q Q12HR JAMEE Hydromorphone HCl (Dilaudid) 1 mg IV Q3H PRN PRN Reason: Pain, Moderate (4-6) Last Admin: 11/18/18 09:43 Dose: 1 mg Documented by: Sodium Chloride (Nacl 0.9% 1000 Ml) 1,000 mls @ 125 mls/hr IV DIRECT [facility] Last Admin: 11/18/18 06:44 Dose: 125 mls/hr Documented by: Levetiracetam (Keppra) 1,000 mg PO BID [facility] Last Admin: 11/18/18 09:42 Dose: 1,000 mg Documented by: Ondansetron HCl (Zofran) 4 mg IV Q8H PRN PRN Reason: Nausea And Vomiting Review of Systems Constitutional: no weight loss, no weight gain, no fever, no chills, no sweats Ears, nose, mouth and throat: no ear pain, no nose pain, no sinus pressure, no sinus pain Cardiovascular: chest pain, no orthopnea, no palpitations, no rapid/irregular heart beat, no edema, no syncope, no lightheadedness, no shortness of breath, no dyspnea on exertion, no high blood pressure, no leg edema, no decreased exercise tolerance Respiratory: no cough, no shortness of breath, no dyspnea on exertion, no congestion, no wheezing, no pain on inspiration Gastrointestinal: no abdominal pain, no nausea, no vomiting, no diarrhea, no con stipation, no change in bowel habits Genitourinary Male: no dysuria, no hematuria, no flank pain, no discharge, no urinary frequency, no urinary hesitancy Musculoskeletal: no neck stiffness, no neck pain, no shooting arm pain, no arm numbness/tingling, no low back pain, no shooting leg pain Integumentary: no rash, no pruritis, no redness, no sores, no wounds Neurological: seizures, no head injury, no paralysis, no weakness, no parathesias, no numbness, no tingling Psychiatric: no anxiety Endocrine: no cold intolerance, no heat intolerance Hematologic/Lymphatic: no easy bruising, no easy bleeding Allergic/Immunologic: no urticaria, no wheezing Physical Examination Vital Signs Temp Pulse Resp BP Pulse Ox 98.2 F 84 16 130/79 98 11/17/18 20:06 11/17/18 20:06 11/17/18 20:06 11/17/18 20:06 11/17/18 20:06 General appearance: no acute distress HEENT: Positive: PERRL, Normocephaly, Mucus Membranes Moist Neck: Positive: neck supple, trachea midline Cardiac: Positive: Reg Rate and Rhythm, S1/S2 Lungs: Positive: clear to auscultation Neuro: Positive: Grossly Intact Abdomen: Positive: Soft. Negative: Tender Skin: Negative: Rash Musculoskeletal: No Pain Extremities: Absent: edema Results 11/18/18 00:32 11/18/18 00:32 Cardiac Enzymes 11/18/18 11/18/18 11/18/18 Range/Units 04:21 04:21 05:45 AST 43 H (5-40) units/L CK-MB (CK-2) 17.9 H 17.2 H (0.0-4.0) ng/mL Coagulation 11/18/18 Range/Units 00:32 PT 13.3 (12.2-14.9) Sec. INR 0.97 (0.87-1.13) Lipids 11/18/18 Range/Units 00:32 Triglycerides 183 H (2-149) mg/dL Cholesterol 122 (50-199) mg/dL HDL Cholesterol 43 (40-59) mg/dL Cholesterol/HDL Ratio 2.83 % CBC 11/18/18 Range/Units 00:32 WBC 6.4 (4.5-11.0) K/mm3 RBC 3.55 L (3.65-5.03) M/mm3 Hgb 10.5 L (11.8-15.2) gm/dl Hct 30.5 L (35.5-45.6) % Plt Count 305 (140-440) K/mm3 Comprehensive Metabolic Panel 11/18/18 11/18/18 Range/Units 00:32 04:21 Sodium 138 (137-145) mmol/L Potassium 3.9 (3.6-5.0) mmol/L Chloride 101.5 (98-107) mmol/L Carbon Dioxide 26 (22-30) mmol/L BUN 8 L (9-20) mg/dL Creatinine 0.5 L (0.8-1.5) mg/dL Glucose 110 H (75-100) mg/dL Calcium 8.9 (8.4-10.2) mg/dL Direct Bilirubin < 0.2 (0-0.2) mg/dL Indirect Bilirubin 0.4 mg/dL AST 43 H (5-40) units/L ALT 35 (7-56) units/L Alkaline Phosphatase 70 (35-129) units/L Total Protein 6.7 (6.3-8.2) g/dL Albumin 4.0 (3.9-5) g/dL - Imaging and Cardiology Echo: pending EKG: report reviewed, image reviewed EKG interpretations - Telemetry EKG Rhythm: Sinus Rhythm - EKG Sinus rhythms and dysrhythmias: sinus rhythm Repolarization changes or abnormalities: repolarization abn secondary to ventricular hypertrophy Assessment and Plan Assessment: Right IJ acute DVT - Anticoagulation with Lovenox, supportive care. Vascular consult. chest CTA negative for PE. Seizure d/o Sickle cell disease Chest pain NSTEMI type II Plan: Currently stable cardiac status. CE elevation pattern appears c/w NSTEMI type II. Can consider ischemic evaluation once medically stabilized - can be done as OP. F/u echo. The patient has been seen in conjunction with Dr. Merida who agrees with the assessment and plan of care.
[2018-11-18 15:49] LABS: Creatine Kinase MB 9.6 ng/mL (0.0-4.0)
[2018-11-18] MEDS ORDERED: PERCOCET 5/325 PO PRN (17:43)
[2018-11-18] MEDS ORDERED: BENADRYL IV ONE (18:15)
[2018-11-18] MEDS: LOVENOX SUB-Q SCH (21:14)
[2018-11-19] MEDS: DILAUDID IV PRN ×7 (00:13→21:17)
[2018-11-19] MEDS: NACL 0.9% 1000 ML 1,000 ML IV SCH ×3 (00:14→17:21)
[2018-11-19] MEDS: BENADRYL PO PRN (00:19)
[2018-11-19 06:25] LABS: Hematocrit 30.2 % (35.5-45.6); Hemoglobin 10.3 gm/dl (11.8-15.2); Mean Corpuscular HGB Conc 34 % (32-34); Mean Corpuscular Volume 88 fl (84-94); Platelet Count 306 K/mm3 (140-440); Red Blood Count 3.44 M/mm3 (3.65-5.03); Red Cell Distribution Width 17.8 % (13.2-15.2)
[2018-11-19 06:39] LABS: BUN/Creatinine Ratio 15; Blood Urea Nitrogen 9 mg/dL (9-20); Calcium 8.7 mg/dL (8.4-10.2); Hemolysis Index 44
[2018-11-19 07:45] LABS: Basophils % (Manual) 0 % (0.0-1.8); Total Cells Counted 100
[2018-11-19 07:46] LABS: Anisocytosis 1+; Hypochromasia 1+; Ovalocytes 1+; Platelet Estimate Consistent w Auto; Poikilocytosis 1+; Target Cells 1+; Tear Drop Cells Few
[2018-11-19] MEDS: KEPPRA PO SCH ×2 (09:01→21:16)
[2018-11-19] MEDS: LOVENOX SUB-Q SCH ×2 (09:01→22:43)
--- NOTE | 2018-11-19 12:12 | Progress Note ---
Assessment and Plan Right IJ acute DVT - Anticoagulation with Lovenox, supportive care. Vascular consult. chest CTA negative for PE. Seizure d/o Sickle cell disease Chest pain NSTEMI type II rec: stress in am Subjective Date of service: 11/19/18 Principal diagnosis: chest pain Interval history: chest pain better Objective Vital Signs Temp Pulse Resp BP BP Pulse Ox 11/19/18 12:00 20 11/19/18 08:57 20 11/19/18 08:41 20 97 11/19/18 08:00 98.3 F 72 18 107/65 11/19/18 04:31 98.2 F 69 18 107/55 97 11/19/18 00:10 98.4 F 75 18 107/68 96 11/18/18 22:00 18 11/18/18 19:41 98.4 F 84 20 102/66 93 11/18/18 16:35 99.0 F 79 18 119/72 97 11/18/18 12:34 97.9 F 75 18 102/63 98 - Physical Examination HEENT: Positive: PERRL, Normocephaly, Mucus Membranes Moist Neck: Positive: neck supple, trachea midline Cardiac: Positive: Reg Rate and Rhythm Lungs: Positive: clear to auscultation Neuro: Positive: Grossly Intact Abdomen: Positive: Soft. Negative: Tender Skin: Negative: Rash Musculoskeletal: No Pain Extremities: Absent: edema - Labs and Meds Cardiac Enzymes 11/18/18 Range/Units 14:35 CK-MB (CK-2) 9.6 H (0.0-4.0) ng/mL CBC 11/19/18 Range/Units 05:59 WBC 5.3 (4.5-11.0) K/mm3 RBC 3.44 L (3.65-5.03) M/mm3 Hgb 10.3 L (11.8-15.2) gm/dl Hct 30.2 L (35.5-45.6) % Plt Count 306 (140-440) K/mm3 Comprehensive Metabolic Panel 11/19/18 Range/Units 05:59 Sodium 139 (137-145) mmol/L Potassium 4.3 (3.6-5.0) mmol/L Chloride 104.7 (98-107) mmol/L Carbon Dioxide 24 (22-30) mmol/L BUN 9 (9-20) mg/dL Creatinine 0.6 L (0.8-1.5) mg/dL Glucose 89 (75-100) mg/dL Calcium 8.7 (8.4-10.2) mg/dL - Imaging and Cardiology EKG: report reviewed, image reviewed Echo: report reviewed (normal lv function no signficant reguritations ) - Telemetry EKG Rhythm: Sinus Rhythm - EKG Sinus rhythms and dysrhythmias: sinus rhythm Repolarization changes or abnormalities: repolarization abn secondary to ventricular hypertrophy
--- NOTE | 2018-11-19 13:33 | Vascular Lab Report ---
FINAL REPORT EXAM: VL VENOUS DUPLEX UE BILAT HISTORY: Palpable cord right arm; history of left arm DVT TECHNIQUE: Ultrasound examination of the right upper extremity venous system Ultrasound examination of the left upper extremity venous system PRIORS: None. FINDINGS: Right arm: Abnormal intraluminal echoes in right internal jugular vein. It appears largely intraluminal and mini patience attached to 1 wall. This is suggestive of nonocclusive thrombus. Vein does not compress in this region. One of 2 brachial vein branches is only partially compressible and appears contain echogenic wall thi ckening which may be chronic scar thrombus residue from prior DVT. Other deep veins appear patent to include the right subclavian, right axillary, and other half of the right brachial vein. The superficial cephalic vein is noncompressible at the level of the shoulder and contains abnormal i ntraluminal thrombus with lack of flow. This may be superficial thrombosis or thrombophlebitis. Left arm: Normal compressibility, vascular patency, and augmentation are present diffusely throughout the visua lized portion of the deep veins of the left arm. No abnormal intraluminal echoes are visualized to s uggest thrombus. IMPRESSION: No sonographic evidence of DVT in the left arm Findings most compatible with nonocclusive loosely adhered DVT in the right IJV Intravenous echoes along the wall of 1 of the 2 right brachial venous branches is suggestive of chron ic DVT residue Suggestion of superficial thrombosis and/or thrombophlebitis in the cephalic vein at the right should er level 11/19/2018 at 1:29 p.m. EST: I discussed the findings over the phone with NEREYDA Ruiz.
[2018-11-19] MEDS ORDERED: BENADRYL IV ONE (15:22)
[2018-11-19] MEDS ORDERED: BENADRYL IV PRN (17:16)
--- NOTE | 2018-11-19 17:20 | Progress Note ---
Assessment and Plan Assessment and plan: --Elevated cardiac enzymes; non-ST elevation [place], nonspecific cardiology following, scheduled stress test for tomorrow Continue current management, normal LV function --Right IJ acute DVT; Anticoagulation with Lovenox, transition to Eliquis Vascular following, recommend 3 months of anticoagulation --Sickle cell disease with painful crisis; Continue pain management, IV hydration, follow private fluid dynamicist upon discharge --Syncope ; workup negative, no new episodes of syncope --Elevated D dimers; negative PE on CTA chest Right IJ acute DVT, check lower extremity venous Doppler. Closely monitor the patient and adjust the management as needed Plan of care reviewed with the patient and his nurse Stress test, if negative and stable for discharge home tomorrow Plan of care is reviewed with the patient and his nurse I also discussed with flow nurse Dr. Hsu History Interval history: Patient seen and examined medical records reviewed No new events reported by the nursing staff Patient is scheduled for stress test tomorrow Complaints of generalized body pains Receiving full dose Lovenox for right IJ DVT Alert awake oriented not in acute distress Vital signs reviewed Hospitalist Physical - Constitutional Vitals: Temp Pulse Resp BP Pulse Ox 98.7 F 37 L 20 98/59 97 11/19/18 15:00 11/19/18 16:47 11/19/18 15:07 11/19/18 16:46 11/19/18 16:47 General appearance: Present: no acute distress, well-nourished - EENT Eyes: Present: PERRL, EOM intact - Neck Neck: Present: supple, normal ROM - Respiratory Respiratory effort: normal Respiratory: bilateral: diminished, negative: rales, rhonchi, wheezing - Cardiovascular Rhythm: regular Heart Sounds: Present: S1 & S2 - Extremities Extremities: no ischemia, No edema - Abdominal General gastrointestinal: soft, non-tender, non-distended, normal bowel sounds - Integumentary Integumentary: Present: clear, warm - Psychiatric Psychiatric: appropriate mood/affect, cooperative - Neurologic Neurologic: CNII-XII intact, moves all extremities Results - Labs CBC & Chem 7: 11/19/18 05:59 11/19/18 05:59 Labs: Laboratory Last Values WBC 5.3 K/mm3 (4.5-11.0) 11/19/18 05:59 RBC 3.44 M/mm3 (3.65-5.03) L 11/19/18 05:59 Hgb 10.3 gm/dl (11.8-15.2) L 11/19/18 05:59 Hct 30.2 % (35.5-45.6) L 11/19/18 05:59 MCV 88 fl (84-94) 11/19/18 05:59 MCH 30 pg (28-32) 11/19/18 05:59 MCHC 34 % (32-34) 11/19/18 05:59 RDW 17.8 % (13.2-15.2) H 11/19/18 05:59 Plt Count 306 K/mm3 (140-440) 11/19/18 05:59 Lymph % (Auto) History Professor 11/19/18 05:59 [place] % (Auto) History Professor 11/18/18 00:32 Add Manual Diff Complete 11/19/18 05:59 Total Counted 100 11/19/18 05:59 Seg Neutrophils % History Professor 11/19/18 05:59 Seg Neuts % (Manual) 27.0 % (40.0-70.0) L 11/19/18 05:59 Band Neutrophils % 0 % 11/19/18 05:59 Lymphocytes % (Manual) 50.0 % (13.4-35.0) H 11/19/18 05:59 Reactive Lymphs % (Man) 0 % 11/19/18 05:59 Monocytes % (Manual) 16.0 % (0.0-7.3) H 11/19/18 05:59 Eosinophils % (Manual) 7.0 % (0.0-4.3) H 11/19/18 05:59 Basophils % (Manual) 0 % (0.0-1.8) 11/19/18 05:59 Metamyelocytes % 0 % 11/19/18 05:59 Myelocytes % 0 % 11/19/18 05:59 Promyelocytes % 0 % 11/19/18 05:59 Blast Cells % 0 % 11/19/18 05:59 Nucleated RBC % Not Reportable 11/19/18 05:59 Seg Neutrophils # Man 1.4 K/mm3 (1.8-7.7) L 11/19/18 05:59 Band Neutrophils # 0.0 K/mm3 11/19/18 05:59 Lymphocytes # (Manual) 2.7 K/mm3 (1.2-5.4) 11/19/18 05:59 Abs React Lymphs (Man) 0.0 K/mm3 11/19/18 05:59 Monocytes # (Manual) 0.8 K/mm3 (0.0-0.8) 11/19/18 05:59 Eosinophils # (Manual) 0.4 K/mm3 (0.0-0.4) 11/19/18 05:59 Basophils # (Manual) 0.0 K/mm3 (0.0-0.1) 11/19/18 05:59 Metamyelocytes # 0.0 K/mm3 11/19/18 05:59 Myelocytes # 0.0 K/mm3 11/19/18 05:59 Promyelocytes # 0.0 K/mm3 11/19/18 05:59 Blast Cells # 0.0 K/mm3 11/19/18 05:59 WBC Morphology Not Reportable 11/19/18 05:59 Hypersegmented Neuts Not Reportable 11/19/18 05:59 Hyposegmented Neuts Not Reportable 11/19/18 05:59 Hypogranular Neuts Not Reportable 11/19/18 05:59 Smudge Cells Not Reportable 11/19/18 05:59 Toxic Granulation Not Reportable 11/19/18 05:59 Toxic Vacuolation Not Reportable 11/19/18 05:59 Dohle Bodies Not Reportable 11/19/18 05:59 Pelger-Huet Anomaly Not Reportable 11/19/18 05:59 Jamel Rods Not Reportable 11/19/18 05:59 Platelet Estimate Consistent w auto 11/19/18 05:59 Clumped Platelets Not Reportable 11/19/18 05:59 Plt Clumps, EDTA Not Reportable 11/19/18 05:59 Large Platelets Not Reportable 11/19/18 05:59 Giant Platelets Not Reportable 11/19/18 05:59 Platelet Satelliting Not Reportable 11/19/18 05:59 Plt Morphology Comment Not Reportable 11/19/18 05:59 RBC Morphology Not Reportable 11/19/18 05:59 Dimorphic RBCs Not Reportable 11/19/18 05:59 Polychromasia Not Reportable 11/19/18 05:59 Hypochromasia 1+ 11/19/18 05:59 Poikilocytosis 1+ 11/19/18 05:59 Anisocytosis 1+ 11/19/18 05:59 Microcytosis 1+ 11/19/18 05:59 Macrocytosis Not Reportable 11/19/18 05:59 Spherocytes Not Reportable 11/19/18 05:59 Pappenheimer Bodies Not Reportable 11/19/18 05:59 Sickle Cells Not Reportable 11/19/18 05:59 Target Cells 1+ 11/19/18 05:59 Tear Drop Cells Few 11/19/18 05:59 Ovalocytes 1+ 11/19/18 05:59 Stomatocytes Few 11/18/18 00:32 Helmet Cells Not Reportable 11/19/18 05:59 [place] Bodies Not Reportable 11/19/18 05:59 Wheeler Rings Not Reportable 11/19/18 05:59 Sandee Cells Not Reportable 11/19/18 05:59 Bite Cells Not Reportable 11/19/18 05:59 Crenated Cell Not Reportable 11/19/18 05:59 Elliptocytes Not Reportable 11/19/18 05:59 Acanthocytes (Spur) Not Reportable 11/19/18 05:59 Rouleaux Not Reportable 11/19/18 05:59 Hemoglobin C Crystals Not Reportable 11/19/18 05:59 Schistocytes Not Reportable 11/19/18 05:59 Malaria parasites Not Reportable 11/19/18 05:59 Percent Retic 2.89 % (0.78-2.58) H 11/18/18 00:32 Darryn Bodies Not Reportable 11/19/18 05:59 Hem Pathologist Commnt No 11/19/18 05:59 PT 13.3 Sec. (12.2-14.9) 11/18/18 00:32 INR 0.97 (0.87-1.13) 11/18/18 00:32 D-Dimer 776.68 ng/mlDDU (0-234) H 11/18/18 01:20 Sodium 139 mmol/L (137-145) 11/19/18 05:59 Potassium 4.3 mmol/L (3.6-5.0) 11/19/18 05:59 Chloride 104.7 mmol/L (98-107) 11/19/18 05:59 Carbon Dioxide 24 mmol/L (22-30) 11/19/18 05:59 Anion Gap 15 mmol/L 11/19/18 05:59 BUN 9 mg/dL (9-20) 11/19/18 05:59 Creatinine 0.6 mg/dL (0.8-1.5) L 11/19/18 05:59 Estimated GFR > 60 ml/min 11/19/18 05:59 BUN/Creatinine Ratio 15 % 11/19/18 05:59 Glucose 89 mg/dL (75-100) 11/19/18 05:59 Calcium 8.7 mg/dL (8.4-10.2) 11/19/18 05:59 Total Bilirubin 0.60 mg/dL (0.1-1.2) 11/18/18 04:21 Direct Bilirubin < 0.2 mg/dL (0-0.2) 11/18/18 04:21 Indirect Bilirubin 0.4 mg/dL 11/18/18 04:21 AST 43 units/L (5-40) H 11/18/18 04:21 ALT 35 units/L (7-56) 11/18/18 04:21 Alkaline Phosphatase 70 units/L (35-129) 11/18/18 04:21 Total Creatine Kinase 158 units/L (55-170) 11/18/18 14:35 CK-MB (CK-2) 9.6 ng/mL (0.0-4.0) H 11/18/18 14:35 CK-MB (CK-2) Rel Index 6.0 (0-4) H 11/18/18 14:35 Troponin T 0.155 ng/mL (0.00-0.029) H* D 11/18/18 14:35 Total Protein 6.7 g/dL (6.3-8.2) 11/18/18 04:21 Albumin 4.0 g/dL (3.9-5) 11/18/18 04:21 Albumin/Globulin Ratio 1.5 % 11/18/18 04:21 Triglycerides 183 mg/dL (2-149) H 11/18/18 00:32 Cholesterol 122 mg/dL (50-199) 11/18/18 00:32 LDL Cholesterol Direct 78 mg/dL (50-130) 11/18/18 00:32 HDL Cholesterol 43 mg/dL (40-59) 11/18/18 00:32 Cholesterol/HDL Ratio 2.83 % 11/18/18 00:32 Urine Color Yellow (Yellow) 11/18/18 01:31 Urine Turbidity Clear (Clear) 11/18/18 01:31 Urine pH 5.0 (5.0-7.0) 11/18/18 01:31 Ur Specific [place] 1.004 (1.003-1.030) 11/18/18 01:31 Urine Protein <15 mg/dl mg/dL (Negative) 11/18/18 01:31 Urine Glucose (UA) Neg mg/dL (Negative) 11/18/18 01:31 Urine Ketones Neg mg/dL (Negative) 11/18/18 01:31 Urine Blood Neg (Negative) 11/18/18 01:31 Urine Nitrite Neg (Negative) 11/18/18 01:31 Urine Bilirubin Neg (Negative) 11/18/18 01:31 Urine Urobilinogen < 2.0 mg/dL (<2.0) 11/18/18 01:31 Ur Leukocyte Esterase Neg (Negative) 11/18/18 01:31 Urine WBC (Auto) 4.0 /HPF (0.0-6.0) 11/18/18 01:31 Urine RBC (Auto) 1.0 /HPF (0.0-6.0) 11/18/18 01:31 U Epithel Cells (Auto) < 1.0 /HPF (0-13.0) 11/18/18 01:31
[2018-11-19] MEDS: ELIQUIS PO SCH (21:16)
[2018-11-20] MEDS: DILAUDID IV PRN ×3 (00:21→09:55)
[2018-11-20] MEDS: NACL 0.9% 1000 ML 1,000 ML IV SCH (00:22)
[2018-11-20 05:59] LABS: Hematocrit 31.2 % (35.5-45.6); Hemoglobin 10.4 gm/dl (11.8-15.2); Mean Corpuscular HGB Conc 33 % (32-34); Mean Corpuscular Volume 88 fl (84-94); Platelet Count 312 K/mm3 (140-440); Red Blood Count 3.54 M/mm3 (3.65-5.03); Red Cell Distribution Width 17.6 % (13.2-15.2)
[2018-11-20 06:39] LABS: Anisocytosis 1+; Basophils % (Manual) 0 % (0.0-1.8); Hypochromasia 1+; Ovalocytes 1+; Poikilocytosis 1+; Tear Drop Cells Few; Total Cells Counted 100
[2018-11-20 06:40] LABS: Large Platelets Rare; Target Cells 2+
[2018-11-20 07:21] LABS: BUN/Creatinine Ratio 10; Blood Urea Nitrogen 6 mg/dL (9-20); Calcium 8.9 mg/dL (8.4-10.2); Hemolysis Index 47
[2018-11-20] MEDS ORDERED: LEXISCAN IV ONE ×2 (08:14→08:47)
[2018-11-20] MEDS: KEPPRA PO SCH (10:20)
[2018-11-20] MEDS: ELIQUIS PO SCH (10:20)
--- NOTE | 2018-11-20 11:37 | Progress Note ---
Assessment and Plan Right IJ acute DVT - Anticoagulation with Lovenox, supportive care. Vascular consult. chest CTA negative for PE. Seizure d/o Sickle cell disease Chest pain NSTEMI type II rec: Nuclear stress test today shows no significant ischemia and normal function echocardiogram continue medical management for sickle cell Subjective Date of service: 11/20/18 Principal diagnosis: chest pain Interval history: pt has diffuse body pains Objective Vital Signs Temp Pulse Resp BP BP Pulse Ox 11/20/18 04:21 98.3 F 58 L 18 104/61 100 11/19/18 23:39 98.5 F 72 18 107/68 99 11/19/18 20:42 18 11/19/18 19:38 98.1 F 82 18 126/77 98 11/19/18 18:13 20 11/19/18 16:47 37 L 97 11/19/18 16:46 98/59 11/19/18 15:48 81 11/19/18 15:07 20 11/19/18 15:00 98.7 F 72 98/59 11/19/18 12:00 20 - Physical Examination General: Appears Well HEENT: Positive: PERRL, Normocephaly, Mucus Membranes Moist Neck: Positive: neck supple, trachea midline Cardiac: Positive: Regular Rate Lungs: Positive: clear to auscultation Neuro: Positive: Grossly Intact Abdomen: Positive: Soft. Negative: Tender Skin: Negative: Rash Musculoskeletal: No Pain Extremities: Absent: edema - Labs and Meds CBC 11/20/18 Range/Units 05:41 WBC 4.9 (4.5-11.0) K/mm3 RBC 3.54 L (3.65-5.03) M/mm3 Hgb 10.4 L (11.8-15.2) gm/dl Hct 31.2 L (35.5-45.6) % Plt Count 312 (140-440) K/mm3 Comprehensive Metabolic Panel 11/20/18 Range/Units 05:41 Sodium 139 (137-145) mmol/L Potassium 4.4 (3.6-5.0) mmol/L Chloride 106.3 (98-107) mmol/L Carbon Dioxide 22 (22-30) mmol/L BUN 6 L (9-20) mg/dL Creatinine 0.6 L (0.8-1.5) mg/dL Glucose 89 (75-100) mg/dL Calcium 8.9 (8.4-10.2) mg/dL - Imaging and Cardiology EKG: report reviewed, image reviewed Pharmacologic stress test: report reviewed (normal myocardial perfusion no signficant ischemia noted) Echo: report reviewed (normal lv function no signficant reguritations ) - EKG Sinus rhythms and dysrhythmias: sinus rhythm Repolarization changes or abnormalities: repolarization abn secondary to ventricular hypertrophy
[2018-11-20 12:23] VITALS: BP 133/77
--- NOTE | 2018-11-20 12:33 | Discharge Summary ---
Providers - Providers Date of Admission: 11/18/18 03:23 Date of discharge: 11/20/18 Attending physician: MICHEAL SANTANA 11/18/18 01:24 Consult to Physician [CONS] Urgent Comment: Dr. Chu spoke with Dr. Hsu @ [phone] Consulting Provider: MELQUIADES HSU Physician Instructions: Reason For Exam: abnormal EKG, elevated troponin 11/18/18 11:28 Consult to Physician [CONS] Routine Comment: Consulting Provider: MEKA PATRICIO Physician Instructions: Reason For Exam: Acute DVT Rt IJ Primary care physician: FLAQUITO RUIZ Hospitalization Reason for admission: chest pain/sickle cell crisis Condition: Stable Pertinent studies: CT head no acute abnormality CT abdomen and pelvis; no acute abnormalities CTA chest; no PE lupper extremity venous Doppler; nonocclusive loosely adherent DVT in that right IJ vein Carotid Doppler; no hemodynamically significant stenosis Incidental finding acute DVT right IJ vein Stress test; negative for reversible ischemia Echo; EF 50-55% Hospital course: 33-year-old -[place] male patient with significant history of sig nificant disease seizure disorder history of left upper extremity DVT currently not on any anticoagulation was admitted through emergency room with chest pain, and sickle cell crisis, Patient evaluation was consistent with non-ST elevation [place] with positive cardiac enzymes, evaluated by cardiology, medications optimized, scheduled for stress test, negative for reversible ischemia, normal EF, Patient had incidental finding of right IJ vein thrombosis, started on full dose anticoagulation with Lovenox, evaluated by vascular, recommend total anticoagulation for 3 months and follow- up with him in the officeLovenox was changed Eliquis. Patient is comfortable in no new complaints vital signs stable physical examination unremarkable hemodynamically and clinically stable for discharge Discharge diagnosis; --Elevated cardiac enzymes; non-ST elevation [place], stress test negative --Noncardiac chest pain; due to GERD --GERD; advised Protonix --Right IJ acute DVT; Lovenox, transition to Eliquis Vascular evaluated recommend 3 months of anticoagulation --Sickle cell disease with painful crisis; pain medication supportive car --Syncope ; workup negative, no new episodes of syncope --Elevated D dimers; negative PE on CTA chest Right IJ acute DVT, check lower extremity venous Doppler. Disposition: TO HOME OR SELFCARE Time spent for discharge: 32 min Core Measure Documentation - Palliative Care Palliative Care/ Comfort Measures: Not Applicable - Core Measures Any of the following diagnoses?: DVT/PE - VTE Discharge Requirements Deep Vein Thrombosis/Pulmonary Embolism Present on Admission: Yes Has pt received <5 days of overlap therapy or INR<2.0: No (on eliquis) Anticoagulant overlap therapy prescribed at discharge: No Contraindication No Overlap Therapy order at DC: Medical Contraindication (on Eliquis) Exam - Constitutional Vitals: Temp Pulse Resp BP Pulse Ox 98.6 F 80 18 133/77 98 11/20/18 12:23 11/20/18 12:21 11/20/18 12:21 11/20/18 12:21 11/20/18 12:21 General appearance: Present: no acute distress, well-nourished - EENT Eyes: Present: PERRL, EOM intact - Neck Neck: Present: supple, normal ROM - Respiratory Respiratory effort: normal Respiratory: bilateral: diminished, negative: rales, rhonchi, wheezing - Cardiovascular Rhythm: regular Heart Sounds: Present: S1 & S2 - Extremities Extremities: no ischemia, No edema - Abdominal General gastrointestinal: Present: soft, non-tender, non-distended, normal bowel sounds - Integumentary Integumentary: Present: clear, warm - Musculoskeletal Musculoskeletal: strength equal bilaterally - Psychiatric Psychiatric: appropriate mood/affect, cooperative - Neurologic Neurologic: CNII-XII intact, moves all extremities Plan Activity: advance as tolerated Diet: regular Additional Instructions: Follow-up private hematologyist per schedule. If you continue to have chest pain contact M.D. or go to emergency room. Follow with plastic fabricator as needed. Advised to quit recreational drug use. You need to take total 3 months of anticoagulation with Eliquis Follow up with: FLAQUITO RUIZ MD [Primary Care Provider] - 3-5 Days MELQUIADES HSU MD [Staff Physician] - 7 Days MEKA PATRICIO MD [Staff Physician] - 7 Days Forms: Discharge Signature Page Prescriptions: Apixaban [Eliquis] 2 tab PO BID #28 tablet Apixaban [Eliquis] 5 mg PO Q12H #42 tablet oxyCODONE /ACETAMINOPHEN [Percocet 5/325 mg] 1 tab PO BID PRN #6 tablet PRN Reason: Pain, Moderate (4-6)
--- NOTE | 2018-11-20 18:12 | Treadmill Report ---
REASON FOR STUDY: For abnormal troponin. IMAGING PROTOCOL: The patient received 10 mCi of Technetium 99m Tetrofosmin for resting image and 28 mCi of Technetium 99m Tetrofosmin for stress imaging. The imaging for the whole procedure was completed 30-90 minutes following the initial injection of Technetium 99m Tetrofosmin. The SPECT imaging in the 180 degree arc was performed in the right anterior oblique projection. Computerized reconstruction of the images was performed for analysis. IMAGING RESULTS: Normal cavity size from stress to rest. Normal distribution of radionuclide in the anterior, inferior, septal, and apical regions. Gated SPECT, EF 55% with no wall motion abnormality. The patient infused Lexiscan, no EKG changes. SUMMARY: 1. Negative Lexiscan EKG. 2. Normal rest and stress myocardial perfusion scan. No significant ischemia. No wall motion abnormality. Gated SPECT, EF 55%. JOB# [id number] KELLY/DUANE
== END 2018-11-20 12:45 | disposition home or self-care (01) | DRG 280 ==
LOC: ED 19:47 → 3A 11-18 03:23 → 4A 11-18 06:44
PROVIDERS: ADMIT Internal Medicine; ATTEND Internal Medicine
DX: I21.4 Non-ST elevation (NSTEMI) myocardial infarction (principal); D57.00 Hb-SS disease with crisis, unspecified; I82.621 Acute embolism and thrombosis of deep veins of right upper extremity; K21.9 Gastro-esophageal reflux disease without esophagitis; G40.909 Epilepsy, unspecified, not intractable, without status epilepticus; F12.90 Cannabis use, unspecified, uncomplicated; R94.31 Abnormal electrocardiogram [ECG] [EKG]; Z90.81 Acquired absence of spleen; Z90.49 Acquired absence of other specified parts of digestive tract; Z79.899 Other long term (current) drug therapy
CPT/HCPCS: 36415; 70450; 71046; 71275; 74177; 78452; 80048; 80061; 80076; 81001; 82550; 82553; 84484; 85007; 85025; 85045; 85379; 85610; 87086; 93005; 93010; 93017; 93306; 93880; 93970; G0378; A9502; J1170; J1200; J1650; J1885; J2785; J7030; Q9967

== ENCOUNTER 2019-05-06 10:13 | Emergency (ER) | payer MEDICARE ==
[2019-05-06] MEDS ORDERED: NACL 0.9% 1000 ML 1,000 ML IV ONE (10:33)
[2019-05-06] MEDS ORDERED: DILAUDID IV ONE ×2 (10:33→12:20)
[2019-05-06] MEDS ORDERED: TORADOL IV ONE (10:33)
--- NOTE | 2019-05-06 10:38 | Emergency Department Report ---
ED General Adult HPI - General Chief complaint: Sickle Cell Crisis Stated complaint: SICKLE CELL CRISIS Time Seen by Provider: 05/06/19 10:28 Source: patient Mode of arrival: Wheelchair Limitations: No Limitations - History of Present Illness Initial comments: 34-year-old male with history of sickle cell disease presents to ED with 3 day history of back pain, which patient states is consistent with his usual sickle cell pain crises. Patient states he has prescription for Dilaudid at home which he has run out of. Also currently wearing a fentanyl patch which he states he placed one week ago. Patient denies fever, chest pain. Patient states his martin pritchett welt beater is in [place]. States he is trying to switch to Dr Whiteside. -: days(s) (3) Location: back Radiation: non-radiation Quality: aching Consistency: constant Improves with: none Worsens with: movement Associated Symptoms: denies other symptoms. denies: chest pain, fever/chills, shortness of breath - Related Data Home Medications Medication Instructions Recorded Confirmed Last Taken Hydromorphone HCl [Dilaudid] 4 mg PO Q6HR PRN 07/03/15 11/18/18 Unknown levETIRAcetam [Keppra TAB] 1,000 mg PO BID 07/03/15 11/18/18 11/17/18 Previous Rx's Medication Instructions Recorded Last Taken Type Apixaban [Eliquis] 2 tab PO BID #28 tablet 11/20/18 Unknown Rx Apixaban [Eliquis] 5 mg PO Q12H #42 tablet 11/20/18 Unknown Rx oxyCODONE /ACETAMINOPHEN [Percocet 1 tab PO BID PRN #6 tablet 11/20/18 Unknown Rx 5/325 mg] oxyCODONE /ACETAMINOPHEN [Percocet 1 tab PO Q6HR PRN #10 tablet 05/06/19 Unknown Rx 5/325] Allergies Allergy/AdvReac Type Severity Reaction Status Date / Time steriod Allergy Unknown Uncoded 10/31/16 10:04 ED Review of Systems ROS: Stated complaint: SICKLE CELL CRISIS Other details as noted in HPI Comment: All other systems reviewed and negative Constitutional: denies: chills, fever Respiratory: denies: shortness of breath Cardiovascular: denies: chest pain Musculoskeletal: back pain ED Past Medical Hx - Past Medical History Previous Medical History?: Yes Hx Sickle Cell Disease: Yes Hx Seizures: Yes Additional medical history: HX TRANSFUSIONS - Surgical History Past Surgical History?: Yes Hx Cholecystectomy: Yes Additional Surgical History: spleen removed 2009 - Social History Smoking Status: Never Smoker Substance Use Type: None - Medications Home Medications: Home Medications Medication Instructions Recorded Confirmed Last Taken Type Hydromorphone HCl [Dilaudid] 4 mg PO Q6HR PRN 07/03/15 11/18/18 Unknown History levETIRAcetam [Keppra TAB] 1,000 mg PO BID 07/03/15 11/18/18 11/17/18 History Apixaban [Eliquis] 2 tab PO BID #28 tablet 11/20/18 Unknown Rx Apixaban [Eliquis] 5 mg PO Q12H #42 tablet 11/20/18 Unknown Rx oxyCODONE /ACETAMINOPHEN [Percocet 1 tab PO BID PRN #6 tablet 11/20/18 Unknown Rx 5/325 mg] oxyCODONE /ACETAMINOPHEN [Percocet 1 tab PO Q6HR PRN #10 tablet 05/06/19 Unknown Rx 5/325] ED Physical Exam - General Limitations: No Limitations General appearance: alert, in no apparent distress - Head Head exam: Present: atraumatic, normocephalic - Eye Eye exam: Present: normal appearance, PERRL, EOMI - ENT ENT exam: Present: mucous membranes moist - Neck Neck exam: Present: normal inspection - Respiratory Respiratory exam: Present: normal lung sounds bilaterally. Absent: respiratory distress - Cardiovascular Cardiovascular Exam: Present: regular rate, normal rhythm - GI/Abdominal GI/Abdominal exam: Present: soft. Absent: distended, tenderness - Extremities Exam Extremities exam: Present: normal inspection - Back Exam Back exam: Present: tenderness - Neurological Exam Neurological exam: Present: alert, oriented X3 - Psychiatric Psychiatric exam: Present: normal affect, normal mood - Skin Skin exam: Present: warm, dry, intact, normal color ED Course Vital Signs 05/06/19 05/06/19 05/06/19 10:16 10:59 11:00 Temperature 98.6 F Pulse Rate 78 74 Respiratory 18 13 13 Rate Blood Pressure 112/75 Blood Pressure 118/78 [Left] O2 Sat by Pulse 98 100 100 Oximetry 05/06/19 05/06/19 05/06/19 11:25 12:36 13:12 Temperature Pulse Rate 66 54 L Respiratory 13 18 18 Rate Blood Pressure Blood Pressure 116/77 100/59 [Left] O2 Sat by Pulse 99 99 Oximetry 05/06/19 13:51 Temperature Pulse Rate 56 L Respiratory 18 Rate Blood Pressure Blood Pressure 101/68 [Left] O2 Sat by Pulse 100 Oximetry ED Medical Decision Making - Lab Data Result diagrams: 05/06/19 10:53 05/06/19 10:53 - Medical Decision Making - Hb 11.7, retic count 1.39 - pt does not appear to be in crisis at this time - IV fluids, toradol, benadryl, dilaudid 2 mg x 2 given - states pain improved - outpt f/u advised - return precautions given - Differential Diagnosis sickle cell anemia, ciskle cell crisis Critical care attestation.: If time is entered above; I have spent that time in minutes in the direct care of this critically ill patient, excluding procedure time. ED Disposition Clinical Impression: Sickle cell anemia with pain Disposition: DC-01 TO HOME OR SELFCARE Is pt being admited?: No Condition: Stable Instructions: Sickle Cell Crisis (ED) Prescriptions: oxyCODONE /ACETAMINOPHEN [Percocet 5/325] 1 tab PO Q6HR PRN #10 tablet PRN Reason: Pain Referrals: KASIA WILKS MD [Primary Care Provider] - 3-5 Days ADARSH WHITESIDE DO [Staff Physician] - 3-5 Days Time of Disposition: 12:52
[2019-05-06 11:14] LABS: Hemoglobin 11.7 gm/dl (11.8-15.2); Mean Corpuscular HGB Conc 34 % (32-34); Mean Corpuscular Volume 89 fl (84-94); Platelet Count 317 K/mm3 (140-440); Red Blood Count 3.82 M/mm3 (3.65-5.03); Red Cell Distribution Width 15.8 % (13.2-15.2)
[2019-05-06 11:28] LABS: BUN/Creatinine Ratio 17; Blood Urea Nitrogen 10 mg/dL (9-20); Calcium 9.5 mg/dL (8.4-10.2); Hemolysis Index 4
[2019-05-06] MEDS ORDERED: BENADRYL IV ONE (11:30)
[2019-05-06] MEDS ORDERED: BENADRYL ONE (11:32)
[2019-05-06 12:38] LABS: Total Cells Counted 100
[2019-05-06 12:41] LABS: Anisocytosis Few; Platelet Estimate Consistent w Auto; Poikilocytosis Few; Target Cells Rare
[2019-05-06] MEDS ORDERED: PERCOCET 5/325 ONE (13:19)
[2019-05-06] MEDS ORDERED: PERCOCET 5/325 PO ONE (13:25)
[2019-05-06] MEDS ORDERED: FLUSH HEPARIN IV ONE (13:30)
[2019-05-06 13:52] VITALS: BP 101/68
== END 2019-05-06 14:06 | disposition home or self-care (01) ==
LOC: ED 10:13
DX: D57.00 Hb-SS disease with crisis, unspecified (principal); Z90.89 Acquired absence of other organs; Z79.899 Other long term (current) drug therapy; Z88.8 Allergy status to other drugs, medicaments and biological substances
CPT/HCPCS: 36415; 80048; 85007; 85025; 85045; 96374; 96375; 96376; 99284; J1170; J1200; J1642; J1885; J7030

== ENCOUNTER 2019-05-11 08:56 | Emergency (ER) | payer MEDICARE ==
[2019-05-11 09:47] LABS: Basophils # (Auto) 0.1 K/mm3 (0.0-0.1); Basophils % (Auto) 1.2 % (0.0-1.8); Eosinophils # (Auto) 0.3 K/mm3 (0.0-0.4); Eosinophils % (Auto) 2.9 % (0.0-4.3); Hematocrit 33.2 % (35.5-45.6); Hemoglobin 11.4 gm/dl (11.8-15.2); Lymphocytes # (Auto) 2.2 K/mm3 (1.2-5.4); Lymphocytes % (Auto) 23.2 % (13.4-35.0); Mean Corpuscular HGB Conc 35 % (32-34); Mean Corpuscular Volume 89 fl (84-94); Monocytes # (Auto) 0.8 K/mm3 (0.0-0.8); Monocytes % (Auto) 8.8 % (0.0-7.3); Platelet Count 323 K/mm3 (140-440); Red Blood Count 3.73 M/mm3 (3.65-5.03); Red Cell Distribution Width 16.2 % (13.2-15.2)
[2019-05-11] MEDS ORDERED: DILAUDID IV ONE ×3 (09:55→13:37)
[2019-05-11] MEDS ORDERED: BENADRYL PO ONE (09:55)
[2019-05-11] MEDS ORDERED: DILAUDID ONE (09:59)
--- NOTE | 2019-05-11 10:08 | Event Note ---
Date: 05/11/19 Medical screening examination: 34-year-old gentleman, trying to establish care with Dr. Bahena, reported history of sickle cell, presenting to the elbow with sickle cell pain crisis. He was seen here a few days ago by my colleague, Dr. Goss. The patient is afebrile with reassuring vital signs. We will treat his pain. port has been accessed. Vital Signs 05/11/19 05/11/19 09:10 10:03 Temperature 98.1 F Pulse Rate 74 Respiratory 18 22 Rate Blood Pressure 116/77 O2 Sat by Pulse 99 Oximetry Lab Results 05/11/19 Range/Units 09:30 WBC 9.6 (4.5-11.0) K/mm3 RBC 3.73 (3.65-5.03) M/mm3 Hgb 11.4 L (11.8-15.2) gm/dl Hct 33.2 L (35.5-45.6) % MCV 89 (84-94) fl MCH 31 (28-32) pg MCHC 35 H (32-34) % RDW 16.2 H (13.2-15.2) % Plt Count 323 (140-440) K/mm3 Lymph % (Auto) 23.2 (13.4-35.0) % [place] % (Auto) 8.8 H (0.0-7.3) % Eos % (Auto) 2.9 (0.0-4.3) % Baso % (Auto) 1.2 (0.0-1.8) % Lymph # 2.2 (1.2-5.4) K/mm3 [place] # 0.8 (0.0-0.8) K/mm3 Eos # 0.3 (0.0-0.4) K/mm3 Baso # 0.1 (0.0-0.1) K/mm3 Seg Neutrophils % 63.9 (40.0-70.0) % Seg Neutrophils # 6.1 (1.8-7.7) K/mm3 Percent Retic 2.51 (0.78-2.58) %
[2019-05-11] MEDS ORDERED: NACL 0.9% 1000 ML 1,000 ML IV ONE ×2 (10:31→10:32)
[2019-05-11] MEDS ORDERED: TORADOL IV ONE (10:31)
--- NOTE | 2019-05-11 10:52 | Emergency Department Report ---
ED General Adult HPI - General Chief complaint: Sickle Cell Crisis Stated complaint: SICKLE CELL Time Seen by Provider: 05/11/19 10:30 Source: patient, EMS Mode of arrival: Stretcher Limitations: No Limitations - History of Present Illness Initial comments: Patient is a 34-year-old -[place] male with past medical history of sickle cell disease who is presenting with lower back pain with radiation of the pain through his bilateral legs. Patient states pain is consistent with his sickle cell disease and has aching throbbing pain. Pain is 10 out of 10 in severity. Patient states that the only thing different about this episode versus past episodes is that this morning at approximately 3 AM he has some jessi hematuria. Patient states he had some hematuria several years ago. Patient is on a L of bolus. Patient denies the pain being more on the left or right. Patient denies any testicular pain or swelling. Patient states there is some mild nausea but no vomiting and he also denies any fevers chills cough cold or congestion. Severity scale (0 -10): 10 - Related Data Home Medications Medication Instructions Recorded Confirmed Last Taken Hydromorphone HCl [Dilaudid] 4 mg PO Q6HR PRN 07/03/15 11/18/18 Unknown levETIRAcetam [Keppra TAB] 1,000 mg PO BID 07/03/15 11/18/18 11/17/18 Previous Rx's Medication Instructions Recorded Last Taken Type Apixaban [Eliquis] 2 tab PO BID #28 tablet 11/20/18 Unknown Rx Apixaban [Eliquis] 5 mg PO Q12H #42 tablet 11/20/18 Unknown Rx oxyCODONE /ACETAMINOPHEN [Percocet 1 tab PO BID PRN #6 tablet 11/20/18 Unknown Rx 5/325 mg] oxyCODONE /ACETAMINOPHEN [Percocet 1 tab PO Q6HR PRN #10 tablet 05/06/19 Unknown Rx 5/325] Ciprofloxacin HCl [Ciprofloxacin 500 mg PO Q12HR #14 tab 05/11/19 Unknown Rx TAB] Oxycodone HCl/Acetaminophen 1 each PO Q6HR PRN #10 tablet 05/11/19 Unknown Rx [Percocet 10/325 mg] Allergies Allergy/AdvReac Type Severity Reaction Status Date / Time famotidine [From Pepcid] Allergy Unknown Verified 05/11/19 09:13 morphine Allergy Itching Verified 05/11/19 09:13 steriod Allergy Unknown Uncoded 10/31/16 10:04 ED Review of Systems ROS: Stated complaint: SICKLE CELL Other details as noted in HPI Comment: All other systems reviewed and negative ED Past Medical Hx - Past Medical History Previous Medical History?: Yes Hx Sickle Cell Disease: Yes Hx Seizures: Yes Additional medical history: HX TRANSFUSIONS - Surgical History Past Surgical History?: Yes Hx Cholecystectomy: Yes Additional Surgical History: spleen removed 2009 - Social History Smoking Status: Never Smoker Substance Use Type: Marijuana - Medications Home Medications: Home Medications Medication Instructions Recorded Confirmed Last Taken Type Hydromorphone HCl [Dilaudid] 4 mg PO Q6HR PRN 07/03/15 11/18/18 Unknown History levETIRAcetam [Keppra TAB] 1,000 mg PO BID 07/03/15 11/18/18 11/17/18 History Apixaban [Eliquis] 2 tab PO BID #28 tablet 11/20/18 Unknown Rx Apixaban [Eliquis] 5 mg PO Q12H #42 tablet 11/20/18 Unknown Rx oxyCODONE /ACETAMINOPHEN [Percocet 1 tab PO BID PRN #6 tablet 11/20/18 Unknown Rx 5/325 mg] oxyCODONE /ACETAMINOPHEN [Percocet 1 tab PO Q6HR PRN #10 tablet 05/06/19 Unknown Rx 5/325] Ciprofloxacin HCl [Ciprofloxacin 500 mg PO Q12HR #14 tab 05/11/19 Unknown Rx TAB] Oxycodone HCl/Acetaminophen 1 each PO Q6HR PRN #10 tablet 05/11/19 Unknown Rx [Percocet 10/325 mg] ED Physical Exam - General Limitations: No Limitations General appearance: alert, in no apparent distress, in distress (secondary to pain) - Head Head exam: Present: atraumatic, normocephalic - Eye Eye exam: Present: normal appearance, PERRL, EOMI - ENT ENT exam: Present: mucous membranes moist - Neck Neck exam: Present: normal inspection - Respiratory Respiratory exam: Present: normal lung sounds bilaterally. Absent: respiratory distress, wheezes, rales, rhonchi - Cardiovascular Cardiovascular Exam: Present: regular rate, normal rhythm. Absent: systolic murmur, diastolic murmur, rubs, gallop - GI/Abdominal GI/Abdominal exam: Present: soft, normal bowel sounds. Absent: distended, tenderness, guarding, rebound - Rectal Rectal exam: Present: deferred - Extremities Exam Extremities exam: Present: normal inspection - Back Exam Back exam: Present: normal inspection - Neurological Exam Neurological exam: Present: alert, oriented X3 - Psychiatric Psychiatric exam: Present: normal affect, normal mood - Skin Skin exam: Present: warm, dry, intact, normal color. Absent: rash ED Course Vital Signs 05/11/19 05/11/19 05/11/19 09:10 10:03 11:10 Temperature 98.1 F Pulse Rate 74 Respiratory 18 22 20 Rate Blood Pressure 116/77 O2 Sat by Pulse 99 Oximetry 05/11/19 11:47 Temperature Pulse Rate Respiratory 20 Rate Blood Pressure O2 Sat by Pulse Oximetry ED Medical Decision Making - Lab Data Result diagrams: 05/11/19 09:30 05/11/19 11:04 Lab Results 05/11/19 05/11/19 05/11/19 Range/Units 09:30 11:04 13:15 WBC 9.6 (4.5-11.0) K/mm3 RBC 3.73 (3.65-5.03) M/mm3 Hgb 11.4 L (11.8-15.2) gm/dl Hct 33.2 L (35.5-45.6) % MCV 89 (84-94) fl MCH 31 (28-32) pg MCHC 35 H (32-34) % RDW 16.2 H (13.2-15.2) % Plt Count 323 (140-440) K/mm3 Lymph % (Auto) 23.2 (13.4-35.0) % [place] % (Auto) 8.8 H (0.0-7.3) % Eos % (Auto) 2.9 (0.0-4.3) % Baso % (Auto) 1.2 (0.0-1.8) % Lymph # 2.2 (1.2-5.4) K/mm3 [place] # 0.8 (0.0-0.8) K/mm3 Eos # 0.3 (0.0-0.4) K/mm3 Baso # 0.1 (0.0-0.1) K/mm3 Seg Neutrophils % 63.9 (40.0-70.0) % Seg Neutrophils # 6.1 (1.8-7.7) K/mm3 Percent Retic 2.51 (0.78-2.58) % Sodium 142 (137-145) mmol/L Potassium 4.2 (3.6-5.0) mmol/L Chloride 105.4 (98-107) mmol/L Carbon Dioxide 22 (22-30) mmol/L Anion Gap 19 mmol/L BUN 8 L (9-20) mg/dL Creatinine 0.6 L (0.8-1.5) mg/dL Estimated GFR > 60 ml/min BUN/Creatinine Ratio 13 % Glucose 98 (75-100) mg/dL Calcium 9.5 (8.4-10.2) mg/dL Urine Color Red (Yellow) Urine Turbidity Clear (Clear) Urine pH 7.0 (5.0-7.0) Ur Specific [place] 1.004 (1.003-1.030) Urine Protein 100 mg/dl (Negative) mg/dL Urine Glucose (UA) 50 (Negative) mg/dL Urine Ketones Neg (Negative) mg/dL Urine Blood Mod (Negative) Urine Nitrite Neg (Negative) Urine Bilirubin Neg (Negative) Urine Urobilinogen < 2.0 (<2.0) mg/dL Ur Leukocyte Esterase Neg (Negative) Urine WBC (Auto) 14.0 H (0.0-6.0) /HPF Urine RBC (Auto) > 182.0 (0.0-6.0) /HPF Urine Bacteria (Auto) 2+ (Negative) /HPF Urine Mucus Few /HPF - Radiology Data [facility] [address] [place] [address] Cat Scan Report Signed Patient: KEITH GARCIA JR MR#: [id number] : 1985 Acct:[id number] Age/Sex: 34 / M ADM Date: 05/11/19 Loc: ED Attending Dr: Ordering Physician: AURA CELIS MD Date of Service: 05/11/19 Procedure(s): CT abdomen pelvis wo con Accession Number(s): [id number] cc: AURA CELIS MD CT ABDOMEN AND PELVIS WITHOUT CONTRAST HISTORY: jessi hematuria with back pain for one day. History of sickle cell disease. COMPARISON: CT abdomen pelvis with contrast 11/18/2018 TECHNIQUE: Axial CT images were obtained through the abdomen and pelvis without IV contrast. Sagittal and coronal reformatted images. All CT scans at this location are performed using CT dose reduction for ALARA by means of automated exposure control. FINDINGS: CT ABDOMEN: Lung Bases: Clear. Liver: No significant abnormality. Biliary: Cholecystectomy. No biliary dilatation. Spleen: Splenectomy changes are suspected. Pancreas: No significant abnormality. Adrenals: No significant abnormality. Kidneys: Both kidneys remain normal size, contour and position. A 2.5 cm simple cyst at the superior pole of the right kidney is unchanged. No evidence for renal mass, nephrolithiasis or hydronephrosis. The ureters are normal course and caliber. No obvious ureteral s tones. Lymphatics: No lymphadenopathy. Vasculature: No significant abnormality. Bowel/Peritoneum: No significant abnormality. No free air. No free fluid. Normal appendix. CT PELVIS: : The bladder and distal ureters are unremarkable. 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 No fracture or suspicious bony lesion. Additional Findings: None IMPRESSION: No acute abdominal process is identified. No clear explanation for jessi hematuria. No nephrolithiasis is appreciated. A simple 2.5 cm right renal cyst is unchanged since the previous exam. Cholecystectomy and splenectomy. Signer Name: Elmo Swan Jr, MD Signed: 05/11/2019 11:37 AM Workstation Name: [id number] Transcribed By: TTR Dictated By: ELMO SWAN JR, MD Electronically Authenticated By: ELMO SWAN JR, MD Signed Date/Time: 05/11/19 1137 - Medical Decision Making Patient is a 34-year-old male who is presenting with low back pain and hematuria. Patient's CT was negative for obstructive uropathy. There is no evidence of pyelonephritis. Patient's urinalysis finally did return which shows that he does have a large amount of RBCs but also WBCs as well. Patient does has bacteria in the urine. Leuk esterase and nitrites are negative at this time therefore urine cultures have been sent. Patient to be started on antibiotics for interstitial cystitis. Patient received IV fluids and several doses of pain medications for sickle cell. Patient does have some reduction of his pain. On further questioning was the patient's pain subsided he did state that he ran out of his Dilaudid approximately 3-4 days ago. Patient is in between physicians. Patient will be given a prescription for a few Percocet tens to be discharged home. Patient also started on Cipro and given urology for follow-up. Critical care attestation.: If time is entered above; I have spent that time in minutes in the direct care of this critically ill patient, excluding procedure time. ED Disposition Clinical Impression: Sickle cell anemia with pain, Interstitial cystitis Disposition: TO HOME OR SELFCARE Is pt being admited?: No Does the pt Need Aspirin: No Condition: Stable Instructions: Sickle Cell Crisis (ED), Acute Hematuria (ED), Urinary Tract Infection in Men (ED) Referrals: FLAQUITO RUIZ MD [Staff Physician] - 3-5 Days ANTONIO VASQUEZ MD [Staff Physician] - 3-5 Days Time of Disposition: 14:58
--- NOTE | 2019-05-11 11:41 | Cat Scan Report ---
CT ABDOMEN AND PELVIS WITHOUT CONTRAST HISTORY: jessi hematuria with back pain for one day. History of sickle cell disease. COMPARISON: CT abdomen pelvis with contrast 11/18/2018 TECHNIQUE: Axial CT images were obtained through the abdomen and pelvis without IV contrast. Sagittal and coronal reformatted images. All CT scans at this location are performed using CT dose reduction for ALARA by means of automated exposure control. FINDINGS: CT ABDOMEN: Lung Bases: Clear. Liver: No significant abnormality. Biliary: Cholecystectomy. No biliary dilatation. Spleen: Splenectomy changes are suspected. Pancreas: No significant abnormality. Adrenals: No significant abnormality. Kidneys: Both kidneys remain normal size, contour and position. A 2.5 cm simple cyst at the superior pole of the right kidney is unchanged. No evidence for renal mass, nephrolithiasis or hydronephrosis. The ureters are normal course and caliber. No obvious ureteral stones. Lymphatics: No lymphadenopathy. Vasculature: No significant abnormality. Bowel/Peritoneum: No significant abnormality. No free air. No free fluid. Normal appendix. CT PELVIS: : The bladder and distal ureters are unremarkable. Osseous Structures: Focal bone infarcts are identified in the anterior femoral heads and acetabula bi laterally. No fracture or suspicious bony lesion. Additional Findings: None IMPRESSION: No acute abdominal process is identified. No clear explanation for jessi hematuria. No nephrolithiasi s is appreciated. A simple 2.5 cm right renal cyst is unchanged since the previous exam. Cholecystectomy and splenectomy. Signer Name: Elmo Swan Jr, MD Signed: 05/11/2019 11:37 AM Workstation Name: [id number]
[2019-05-11 12:58] LABS: BUN/Creatinine Ratio 13; Blood Urea Nitrogen 8 mg/dL (9-20); Calcium 9.5 mg/dL (8.4-10.2); Hemolysis Index 5
[2019-05-11 13:30] LABS: Bacteria,Urine 2+ /HPF (Negative); Bilirubin,Urine NEG (Negative); Blood,Urine MOD (Negative); Color,Urine Red (Yellow); Mucus,Urine FEW /HPF; Urobilinogen,Urine < 2.0 mg/dL (<2.0)
[2019-05-11 13:43] LABS: RBC,Urine > 182.0 /HPF (0.0-6.0)
[2019-05-11] MEDS ORDERED: FLUSH HEPARIN IV ONE ×2 (15:31→15:49)
[2019-05-11 15:51] VITALS: BP 124/83
== END 2019-05-11 15:52 | disposition home or self-care (01) ==
LOC: ED 08:56
DX: D57.1 Sickle-cell disease without crisis (principal); N30.10 Interstitial cystitis (chronic) without hematuria; F12.90 Cannabis use, unspecified, uncomplicated; Z90.49 Acquired absence of other specified parts of digestive tract; Z79.899 Other long term (current) drug therapy; Z88.6 Allergy status to analgesic agent; Z88.8 Allergy status to other drugs, medicaments and biological substances
CPT/HCPCS: 36415; 74176; 80048; 81001; 85025; 85045; 87086; 96374; 96375; 96376; 99284; J1170; J1642; J1885; J7030

== ENCOUNTER 2019-06-01 06:18 | Emergency (ER) | payer MEDICARE ==
[2019-06-01] MEDS ORDERED: NACL 0.9% 500 ML 500 ML IV ONE (06:35)
[2019-06-01 07:26] LABS: Hematocrit 33.8 % (35.5-45.6); Hemoglobin 11.9 gm/dl (11.8-15.2); Mean Corpuscular HGB Conc 35 % (32-34); Mean Corpuscular Volume 89 fl (84-94); Platelet Count 317 K/mm3 (140-440); Red Blood Count 3.82 M/mm3 (3.65-5.03); Red Cell Distribution Width 15.7 % (13.2-15.2)
[2019-06-01 07:28] LABS: Alanine Aminotransferase 42 units/L (7-56); Albumin 4.3 g/dL (3.9-5); BUN/Creatinine Ratio 15; Blood Urea Nitrogen 9 mg/dL (9-20); Calcium 9.1 mg/dL (8.4-10.2); Hemolysis Index 5
[2019-06-01] MEDS ORDERED: DILAUDID ONE (07:37)
[2019-06-01] MEDS ORDERED: ZOFRAN ONE (07:37)
[2019-06-01] MEDS ORDERED: NACL 0.9% 1000 ML 2,000 ML ONE (07:37)
[2019-06-01] MEDS ORDERED: KEPPRA PO ONE (07:45)
[2019-06-01] MEDS ORDERED: BENADRYL ONE (07:45)
[2019-06-01] MEDS ORDERED: DILAUDID IV ONE ×3 (07:48→10:09)
--- NOTE | 2019-06-01 07:48 | Emergency Department Report ---
ED General Adult HPI - General Chief complaint: Seizure Stated complaint: SICKLE CELL PAIN Source: EMS Mode of arrival: Stretcher Limitations: No Limitations - History of Present Illness Initial comments: The patient presents to the emergency department with a chief complaint of sickle cell crisis and seizure. Patient states that he is having pain in his lower legs back and shoulders is consistent with his sickle cell crisis history. Patient states that the Dilaudid he is prescribed for his sickle cell crisis is not working. Patient also states that he has not been on any seizure medication which was comfortable for the last couple weeks. Patient states that this morn ing he did have a seizure. Patient is alert and oriented 3 upon his ED arrival -: Sudden Location: back, upper extremity, lower extremity Radiation: non-radiation Severity scale (0 -10): 9 Quality: sharp Consistency: constant Improves with: none Worsens with: none Associated Symptoms: denies other symptoms Treatments Prior to Arrival: none - Related Data Home Medications Medication Instructions Recorded Confirmed Last Taken Hydromorphone HCl [Dilaudid] 4 mg PO Q6HR PRN 07/03/15 11/18/18 Unknown levETIRAcetam [Keppra TAB] 1,000 mg PO BID 07/03/15 11/18/18 11/17/18 Previous Rx's Medication Instructions Recorded Last Taken Type Apixaban [Eliquis] 2 tab PO BID #28 tablet 11/20/18 Unknown Rx Apixaban [Eliquis] 5 mg PO Q12H #42 tablet 11/20/18 Unknown Rx oxyCODONE /ACETAMINOPHEN [Percocet 1 tab PO BID PRN #6 tablet 11/20/18 Unknown Rx 5/325 mg] oxyCODONE /ACETAMINOPHEN [Percocet 1 tab PO Q6HR PRN #10 tablet 05/06/19 Unknown Rx 5/325] Ciprofloxacin HCl [Ciprofloxacin 500 mg PO Q12HR #14 tab 05/11/19 Unknown Rx TAB] Oxycodone HCl/Acetaminophen 1 each PO Q6HR PRN #10 tablet 05/11/19 Unknown Rx [Percocet 10/325 mg] oxyCODONE /ACETAMINOPHEN [Percocet 1 tab PO Q6HR PRN #8 tablet 06/01/19 Unknown Rx 5/325] Allergies Allergy/AdvReac Type Severity Reaction Status Date / Time famotidine [From Pepcid] Allergy Unknown Verified 05/11/19 09:13 morphine Allergy Itching Verified 05/11/19 09:13 steriod Allergy Unknown Uncoded 10/31/16 10:04 ED Review of Systems ROS: Stated complaint: SICKLE CELL PAIN Other details as noted in HPI Comment: All other systems reviewed and negative Constitutional: denies: chills, fever Eyes: denies: eye pain, eye discharge, vision change ENT: denies: ear pain, throat pain Respiratory: denies: cough, shortness of breath, wheezing Cardiovascular: denies: chest pain, palpitations Endocrine: no symptoms reported Gastrointestinal: denies: abdominal pain, nausea, diarrhea Genitourinary: denies: urgency, dysuria Musculoskeletal: denies: back pain, joint swelling, arthralgia Skin: denies: rash, lesions Neurological: denies: headache, weakness, paresthesias Psychiatric: denies: anxiety, depression Hematological/Lymphatic: denies: easy bleeding, easy bruising ED Past Medical Hx - Past Medical History Previous Medical History?: Yes Hx Sickle Cell Disease: Yes Hx Seizures: Yes Additional medical history: HX TRANSFUSIONS - Surgical History Hx Cholecystectomy: Yes Additional Surgical History: spleen removed 2009 - Social History Smoking Status: Unknown if ever smoked Substance Use Type: Marijuana - Medications Home Medications: Home Medications Medication Instructions Recorded Confirmed Last Taken Type Hydromorphone HCl [Dilaudid] 4 mg PO Q6HR PRN 07/03/15 11/18/18 Unknown History levETIRAcetam [Keppra TAB] 1,000 mg PO BID 07/03/15 11/18/18 11/17/18 History Apixaban [Eliquis] 2 tab PO BID #28 tablet 11/20/18 Unknown Rx Apixaban [Eliquis] 5 mg PO Q12H #42 tablet 11/20/18 Unknown Rx oxyCODONE /ACETAMINOPHEN [Percocet 1 tab PO BID PRN #6 tablet 11/20/18 Unknown Rx 5/325 mg] oxyCODONE /ACETAMINOPHEN [Percocet 1 tab PO Q6HR PRN #10 tablet 05/06/19 Unknown Rx 5/325] Ciprofloxacin HCl [Ciprofloxacin 500 mg PO Q12HR #14 tab 05/11/19 Unknown Rx TAB] Oxycodone HCl/Acetaminophen 1 each PO Q6HR PRN #10 tablet 05/11/19 Unknown Rx [Percocet 10/325 mg] oxyCODONE /ACETAMINOPHEN [Percocet 1 tab PO Q6HR PRN #8 tablet 06/01/19 Unknown Rx 5/325] ED Physical Exam - General Limitations: No Limitations General appearance: alert, in no apparent distress - Head Head exam: Present: atraumatic, normocephalic - Eye Eye exam: Present: scleral icterus - ENT ENT exam: Present: mucous membranes dry - Neck Neck exam: Present: normal inspection - Respiratory Respiratory exam: Present: normal lung sounds bilaterally. Absent: respiratory distress - Cardiovascular Cardiovascular Exam: Present: regular rate, normal rhythm. Absent: systolic murmur, diastolic murmur, rubs, gallop - GI/Abdominal GI/Abdominal exam: Present: soft, normal bowel sounds. Absent: distended, tenderness - Rectal Rectal exam: Present: deferred - Extremities Exam Extremities exam: Present: normal inspection - Back Exam Back exam: Present: normal inspection - Neurological Exam Neurological exam: Present: alert, oriented X3, CN II-XII intact. Absent: motor sensory deficit - Psychiatric Psychiatric exam: Present: normal affect, normal mood - Skin Skin exam: Present: warm, dry, intact, normal color. Absent: rash ED Course Vital Signs 06/01/19 06/01/19 06/01/19 06:29 06:31 07:01 Temperature 97.7 F Pulse Rate 72 75 Respiratory 12 11 L 19 Rate Blood Pressure 115/75 115/75 O2 Sat by Pulse 99 99 99 Oximetry 06/01/19 06/01/19 07:35 08:00 Temperature 97.8 F Pulse Rate 61 Respiratory 14 Rate Blood Pressure 112/76 O2 Sat by Pulse 97 Oximetry ED Medical Decision Making - Lab Data Result diagrams: 06/01/19 06:44 06/01/19 06:44 Lab Results 06/01/19 06/01/19 06/01/19 Range/Units 06:44 06:44 06:44 WBC 6.7 (4.5-11.0) K/mm3 RBC 3.82 (3.65-5.03) M/mm3 Hgb 11.9 (11.8-15.2) gm/dl Hct 33.8 L (35.5-45.6) % MCV 89 (84-94) fl MCH 31 (28-32) pg MCHC 35 H (32-34) % RDW 15.7 H (13.2-15.2) % Plt Count 317 (140-440) K/mm3 [place] % (Auto) Veterinary Technician Baso % (Auto) Veterinary Technician Add Manual Diff Complete Total Counted 100 Seg Neutrophils % Veterinary Technician Seg Neuts % (Manual) 32.0 L (40.0-70.0) % Band Neutrophils % 2.0 % Lymphocytes % (Manual) 49.0 H (13.4-35.0) % Reactive Lymphs % (Man) 0 % Monocytes % (Manual) 12.0 H (0.0-7.3) % Eosinophils % (Manual) 3.0 (0.0-4.3) % Basophils % (Manual) 2.0 H (0.0-1.8) % Metamyelocytes % 0 % Myelocytes % 0 % Promyelocytes % 0 % Blast Cells % 0 % Nucleated RBC % Not Reportable Seg Neutrophils # Man 2.1 (1.8-7.7) K/mm3 Band Neutrophils # 0.1 K/mm3 Lymphocytes # (Manual) 3.3 (1.2-5.4) K/mm3 Abs React Lymphs (Man) 0.0 K/mm3 Monocytes # (Manual) 0.8 (0.0-0.8) K/mm3 Eosinophils # (Manual) 0.2 (0.0-0.4) K/mm3 Basophils # (Manual) 0.1 (0.0-0.1) K/mm3 Metamyelocytes # 0.0 K/mm3 Myelocytes # 0.0 K/mm3 Promyelocytes # 0.0 K/mm3 Blast Cells # 0.0 K/mm3 WBC Morphology Not Reportable Hypersegmented Neuts Not Reportable Hyposegmented Neuts Not Reportable Hypogranular Neuts Not Reportable Smudge Cells Not Reportable Toxic Granulation Not Reportable Toxic Vacuolation Not Reportable Dohle Bodies Not Reportable Pelger-Huet Anomaly Not Reportable Jamel Rods Not Reportable Platelet Estimate Cons Clumped Platelets Not Reportable Plt Clumps, EDTA Not Reportable Large Platelets Rare Giant Platelets Not Reportable Platelet Satelliting Not Reportable Plt Morphology Comment Not Reportable RBC Morphology Not Reportable Dimorphic RBCs Not Reportable Polychromasia Not Reportable Hypochromasia Not Reportable Poikilocytosis Few Anisocytosis Few Microcytosis Not Reportable Macrocytosis Not Reportable Spherocytes Not Reportable Pappenheimer Bodies Not Reportable Sickle Cells Not Reportable Target Cells 3+ Tear Drop Cells Not Reportable Ovalocytes Rare Helmet Cells Not Reportable Reyes-Yeager Bodies Not Reportable [place] Rings Not Reportable [place] Cells Not Reportable Bite Cells Not Reportable Crenated Cell Not Reportable Elliptocytes Not Reportable Acanthocytes (Spur) Not Reportable Rouleaux Not Reportable Hemoglobin C Crystals Not Reportable Schistocytes Not Reportable Malaria parasites Not Reportable Percent Retic 2.46 (0.78-2.58) % Darryn Bodies Not Reportable Hem Pathologist Commnt No Sodium 140 (137-145) mmol/L Potassium 3.8 (3.6-5.0) mmol/L Chloride 103.8 (98-107) mmol/L Carbon Dioxide 26 (22-30) mmol/L Anion Gap 14 mmol/L BUN 9 (9-20) mg/dL Creatinine 0.6 L (0.8-1.5) mg/dL Estimated GFR > 60 ml/min BUN/Creatinine Ratio 15 % Glucose 90 (75-100) mg/dL Calcium 9.1 (8.4-10.2) mg/dL Total Bilirubin 0.70 (0.1-1.2) mg/dL AST 41 H (5-40) units/L ALT 42 (7-56) units/L Alkaline Phosphatase 75 (35-129) units/L Lactate Dehydrogenase (91-180) units/L Total Protein 7.3 (6.3-8.2) g/dL Albumin 4.3 (3.9-5) g/dL Albumin/Globulin Ratio 1.4 % 06/01/19 Range/Units 06:44 WBC (4.5-11.0) K/mm3 RBC (3.65-5.03) M/mm3 Hgb (11.8-15.2) gm/dl Hct (35.5-45.6) % MCV (84-94) fl MCH (28-32) pg MCHC (32-34) % RDW (13.2-15.2) % Plt Count (140-440) K/mm3 [place] % (Auto) Baso % (Auto) Add Manual Diff Total Counted Seg Neutrophils % Seg Neuts % (Manual) (40.0-70.0) % Band Neutrophils % % Lymphocytes % (Manual) (13.4-35.0) % Reactive Lymphs % (Man) % Monocytes % (Manual) (0.0-7.3) % Eosinophils % (Manual) (0.0-4.3) % Basophils % (Manual) (0.0-1.8) % Metamyelocytes % % Myelocytes % % Promyelocytes % % Blast Cells % % Nucleated RBC % Seg Neutrophils # Man (1.8-7.7) K/mm3 Band Neutrophils # K/mm3 Lymphocytes # (Manual) (1.2-5.4) K/mm3 Abs React Lymphs (Man) K/mm3 Monocytes # (Manual) (0.0-0.8) K/mm3 Eosinophils # (Manual) (0.0-0.4) K/mm3 Basophils # (Manual) (0.0-0.1) K/mm3 Metamyelocytes # K/mm3 Myelocytes # K/mm3 Promyelocytes # K/mm3 Blast Cells # K/mm3 WBC Morphology Hypersegmented Neuts Hyposegmented Neuts Hypogranular Neuts Smudge Cells Toxic Granulation Toxic Vacuolation Dohle Bodies Pelger-Huet Anomaly Jamel Rods Platelet Estimate Clumped Platelets Plt Clumps, EDTA Large Platelets Giant Platelets Platelet Satelliting Plt Morphology Comment RBC Morphology Dimorphic RBCs Polychromasia Hypochromasia Poikilocytosis Anisocytosis Microcytosis Macrocytosis Spherocytes Pappenheimer Bodies Sickle Cells Target Cells Tear Drop Cells Ovalocytes Helmet Cells Reyes-Yeager Bodies [place] Rings [place] Cells Bite Cells Crenated Cell Elliptocytes Acanthocytes (Spur) Rouleaux Hemoglobin C Crystals Schistocytes Malaria parasites Percent Retic (0.78-2.58) % Darryn Bodies Hem Pathologist Commnt Sodium (137-145) mmol/L Potassium (3.6-5.0) mmol/L Chloride (98-107) mmol/L Carbon Dioxide (22-30) mmol/L Anion Gap mmol/L BUN (9-20) mg/dL Creatinine (0.8-1.5) mg/dL Estimated GFR ml/min BUN/Creatinine Ratio % Glucose (75-100) mg/dL Calcium (8.4-10.2) mg/dL Total Bilirubin (0.1-1.2) mg/dL AST (5-40) units/L ALT (7-56) units/L Alkaline Phosphatase (35-129) units/L Lactate Dehydrogenase 273 H (91-180) units/L Total Protein (6.3-8.2) g/dL Albumin (3.9-5) g/dL Albumin/Globulin Ratio % - Medical Decision Making Patient asked multiple times for repeat pain medication and was screaming out to staff. At 10:10 AM I entered the room from the posterior drawer and the patient was wearing in the bed comfortably actually saw me and then he began to roll around in the bed. At this discussed with the patient that we would not be administering any more opioid medications via IV and he will be discharged home with medications Patient states he is out of Dilaudid at home Critical care attestation.: If time is entered above; I have spent that time in minutes in the direct care of this critically ill patient, excluding procedure time. ED Disposition Clinical Impression: Sickle cell pain crisis Disposition: [id number]-01 TO HOME OR SELFCARE Is pt being admited?: No Does the pt Need Aspirin: No Condition: Stable Instructions: Sickle Cell Crisis (ED) Additional Instructions: return if worse Prescriptions: oxyCODONE /ACETAMINOPHEN [Percocet 5/325] 1 tab PO Q6HR PRN #8 tablet PRN Reason: Pain Referrals: KASIA WILKS MD [Primary Care Provider] - 3-5 Days [facility] [Provider Group] - 3-5 Days [facility] [Provider Group] - 3-5 Days Time of Disposition: 10:22
[2019-06-01] MEDS ORDERED: BENADRYL IV ONE (07:49)
[2019-06-01] MEDS ORDERED: NACL 0.9% 1000 ML 1,000 ML ONE (07:50)
[2019-06-01] MEDS ORDERED: NACL 0.9% 1000 ML 1,500 ML IV ONE (07:51)
[2019-06-01 08:12] LABS: Band Neutrophils # (Manual) 0.1 K/mm3; Total Cells Counted 100
[2019-06-01 08:14] LABS: Anisocytosis Few; Large Platelets Rare; Poikilocytosis Few; Target Cells 3+
[2019-06-01 08:15] LABS: Ovalocytes Rare; Platelet Estimate Cons
[2019-06-01] MEDS ORDERED: FLUSH HEPARIN IV ONE ×2 (10:34→12:53)
[2019-06-01 10:38] VITALS: BP 118/81
[2019-06-01] MEDS ORDERED: ZOFRAN IV ONE (12:53)
== END 2019-06-01 10:38 | disposition home or self-care (01) ==
LOC: ED 06:18
DX: D57.00 Hb-SS disease with crisis, unspecified (principal); R56.9 Unspecified convulsions; F12.10 Cannabis abuse, uncomplicated; Z88.5 Allergy status to narcotic agent; Z79.899 Other long term (current) drug therapy; Z90.49 Acquired absence of other specified parts of digestive tract; Z98.890 Other specified postprocedural states
CPT/HCPCS: 36415; 80053; 83615; 85007; 85025; 85045; 96374; 96375; 96376; 99284; J1170; J1200; J1642; J2405; J7030

== ENCOUNTER 2021-05-23 19:00 | Emergency (ER) | payer MEDICARE ==
[2021-05-24 00:39] VITALS: BP 116/76
== END 2021-05-24 06:36 | disposition home or self-care (01) ==
LOC: ED 19:00
DX: M79.10 Myalgia, unspecified site (principal); E87.5 Hyperkalemia; R51.9 Headache, unspecified; J02.9 Acute pharyngitis, unspecified; Z20.822 Contact with and (suspected) exposure to COVID-19; D57.1 Sickle-cell disease without crisis; R56.9 Unspecified convulsions; Z98.890 Other specified postprocedural states; Z88.5 Allergy status to narcotic agent; Z88.8 Allergy status to other drugs, medicaments and biological substances; Z88.9 Allergy status to unspecified drugs, medicaments and biological substances
CPT/HCPCS: 36415; 71045; 80053; 81001; 82550; 83690; 85007; 85025; 85045; 85610; 85652; 85730; 96361; 96374; 96375; 99284; J1170; J1200; J1642; J1885; J2405; J7030